=== PATIENT | male | born 1970 | race American Indian/Alaskan Native ===

== ENCOUNTER 2016-08-14 21:02 | Inpatient (IN) | payer MEDICAID ==
--- NOTE | 2016-08-14 21:19 | ED PDOC ---
Arrival/HPI - General Chief Complaint: Chest Pain Time Seen by Provider: 08/14/16 21:06 Historian: Patient - History of Present Illness Narrative History of Present Illness (Text): 08/14/16 21:16 León Raymundo is a 46 years old male, whose past medical history includes hypertension, CHF, and PR, who presents to the Emergency department complaining of chest pain. Patient states he began experiencing mid-sternal chest pain while walking today. Patient was given aspiring en route by EMS. Patient denies any fever, chills, shortness of breath, nausea, vomiting, diarrhea, urinary symptoms, back pain, neck pain, headache, dizziness, or any other complaints. Patient states he regularly takes Torsemide, Carvedilol, and Norvasc. Time/Duration: Other (today) Symptom Onset: Gradual Symptom Course: Unchanged Activities at Onset: Light Context: Walking, Home Past Medical History - Provider Review Nursing Documentation Reviewed: Yes - Cardiac Hx Congestive Heart Failure: Yes Hx PR: Yes Hx Hypertension: Yes - Psychiatric Hx Substance Use: No Family/Social History - Physician Review Nursing Documentation Reviewed: Yes Family/Social History: No Known Family HX Smoking Status: Current Some Days Smoker Hx Alcohol Use: Yes Hx Substance Use: No Allergies/Home Meds Allergies/Adverse Reactions: Allergies No Known Allergies Allergy (Unverified 08/14/16 21:20) Review of Systems - Physician Review All systems were reviewed & negative as marked: Yes - Review of Systems Constitutional: Normal. absent: Fevers Eyes: Normal ENT: Normal Respiratory: Normal. absent: SOB, Cough Cardiovascular: Chest Pain Gastrointestinal: Normal. absent: Abdominal Pain, Diarrhea, Nausea Genitourinary Male: Normal. absent: Dysuria, Frequency, Hematuria, Urinary Output Changes Musculoskeletal: Normal. absent: Back Pain, Neck Pain Skin: Normal. absent: Rash Neurological: Normal. absent: Headache, Dizziness Endocrine: Normal Hemo/Lymphatic: Normal Psychiatric: Normal Physical Exam Vital Signs Reviewed: Yes Vital Signs Temp Pulse Resp BP Pulse Ox 08/15/16 00:00 54 L 16 167/92 H 98 08/14/16 23:13 56 L 16 166/93 H 99 08/14/16 21:13 98.2 F 69 18 178/104 H 100 Temperature: Afebrile Blood Pressure: Hypertensive Pulse: Regular Respiratory Rate: Normal Appearance: Positive for: Well-Appearing, Non-Toxic, Comfortable Pain Distress: None Mental Status: Positive for: Alert and Oriented X 3 - Systems Exam Head: Present: Atraumatic, Normocephalic Pupils: Present: PERRL Extroacular Muscles: Present: EOMI Conjunctiva: Present: Normal Mouth: Present: Moist Mucous Membranes Neck: Present: Normal Range of Motion Respiratory/Chest: Present: Wheezes (Mild wheeze). No: Respiratory Distress, Accessory Muscle Use Cardiovascular: Present: Regular Rate and Rhythm, Normal S1, S2. No: Murmurs Abdomen: Present: Normal Bowel Sounds. No: Tenderness, Distention, Peritoneal Signs Back: Present: Normal Inspection Upper Extremity: Present: Normal Inspection. No: Cyanosis, Edema Lower Extremity: Present: Normal Inspection. No: Edema Neurological: Present: GCS=15, CN II-XII Intact, Speech Normal Skin: Present: Warm, Dry, Normal Color. No: Rashes Psychiatric: Present: Alert, Oriented x 3, Normal Insight, Normal Concentration Medical Decision Making ED Course and Treatment: 08/14/16 21:16 Impression: 46 year old male complaining of chest pain. Plan: -- EKG -- Chest X-ray -- Labs, cardiac enzymes, alcohol level -- Nitroglycerin -- Reassess and disposition Prior Visits: Notes and results from previous visits were reviewed. Progress Notes: Reviewed EKG, NSR at 68 bpm. Sinus arrhythmia. Non-specific ST/T wave changes. 08/15/16 00:12 Reviewed radiology, Chest X-ray shows no active disease. 08/15/16 00:[address] Olivarez, who is aware and agrees with plan. Pt will go to Telemetry observation for chest pain under the hospitalist service. president ceo & founder notified. - Lab Interpretations Lab Results: 08/14/16 21:25 08/14/16 21:25 Lab Results 08/14/16 21:25: PT 11.1, INR 1.03, APTT 25.9 08/14/16 21:25: WBC 6.2, RBC 4.36, Hgb 11.9 L, Hct 35.9 L, MCV 82.3, MCH 27.3, MCHC 33.1, RDW 15.2 H, Plt Count 354, MPV 9.5 08/14/16 21:25: Alcohol, Quantitative 427 H* 08/14/16 21:25: Sodium 147, Potassium 3.6, Chloride 106, Carbon Dioxide 29, Anion Gap 16, BUN 5 L, Creatinine 0.9, Est GFR ( Amer) > 60, Est GFR (Non -Af Amer) > 60, Random Glucose 102, Calcium 8.9, Total Bilirubin 0.8, AST 58, ALT 48, Alkaline Phosphatase 63, Lactate Dehydrogenase 477, Total Creatine Kinase 560 H, CK-MB (CK-2) 2.2, CK-MB (CK-2) % Cancelled, Troponin I < 0.01, Total Protein 7.6, Albumin 4.4, Globulin 3.3, Albumin/Globulin Ratio 1.3 I have reviewed the lab results: Yes - RAD Interpretation Radiology Orders: 08/14/16 21:21 CHEST PORTABLE [RAD] [employer] 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: ED Physician - EKG Interpretation Interpreted by ED Physician: Yes Type: 12 lead EKG - Medication Orders Current Medication Orders: Acetaminophen (Tylenol 325mg Tab) 650 mg PO Q6H PRN PRN Reason: Fever >100.4 F Famotidine (Pepcid) 20 mg PO BID SHAUNNA Lorazepam (Ativan) 4 mg PO Q3H PRN; Protocol PRN Reason: Etoh withdrawal Lorazepam (Ativan) 4 mg PO Q2H SHAUNNA PRN Reason: Protocol Thiamine HCl (Vitamin B1 Inj) 100 mg IM STAT STA Stop: 08/15/16 00:39 Thiamine HCl (Vitamin B1 Inj) 100 mg IV DAILY SHAUNNA Discontinued Medications Aspirin (Aspirin) 325 mg PO ONCE STA Stop: 08/14/16 22:11 Last Admin: 08/14/16 22:31 Dose: Nitroglycerin (Nitro-Bid 2% Oint) 1 ea TOP ONCE STA Stop: 08/14/16 22:11 Last Admin: 08/14/16 22:33 Dose: 1 ea - Scribe Statement The provider has reviewed the documentation as recorded by the Scribkeisha Gibson All medical record entries made by the Scribe were at my direction and personally dictated by me. I have reviewed the chart and agree that the record accurately reflects my personal performance of the history, physical exam, medical decision making, and the department course for this patient. I have also personally directed, reviewed, and agree with the discharge instructions and disposition. Disposition/Present on Arrival - Present on Arrival Any Indicators Present on Arrival: No History of DVT/PE: No History of Uncontrolled Diabetes: No Urinary Catheter: No History of Decub. Ulcer: No History Surgical Site Infection Following: None - Disposition Have Diagnosis and Disposition been Completed?: Yes Diagnosis: Chest pain, Alcohol intoxication Disposition: HOSPITALIZED Disposition Time: 00:39 Patient Plan: Observation Patient Problems: Current Active Problems Problem Status Onset Chest pain Acute Condition: STABLE Discharge Instructions (ExitCare): Chest Pain (ED) Referrals: Padmini Yanez MD [Primary Care Provider] - Follow up with primary
[2016-08-14 21:41] LABS: HEMATOCRIT 35.9 % (42.0-52.0); MEAN CELL VOLUME 82.3 fL (80.0-105.0); MEAN CORPUSCULAR HEMOGLOBIN 27.3 pg (25.0-35.0); MEAN CORPUSCULAR HGB CONC 33.1 g/dl (31.0-37.0); MEAN PLATELET VOLUME 9.5 fl (7.0-11.0); RED CELL DISTRIBUTION WIDTH 15.2 % (11.5-14.5); WHITE BLOOD COUNT 6.2 10^3/ul (4.5-11.0)
[2016-08-14 21:44] VITALS: BMI 27.3
[2016-08-14 21:53] LABS: ALB/GLOB RATIO 1.3 (1.1-1.8); ALKALINE PHOSPHATASE 63 U/L (38-133); ALT/SGPT 48 U/L (7-56); AST/SGOT 58 U/L (15-59); BILIRUBIN,TOTAL 0.8 mg/dL (0.2-1.3); BLOOD UREA NITROGEN 5 mg/dL (7-21); CALCIUM 8.9 mg/dL (8.4-10.5); CARBON DIOXIDE 29 mmol/L (21-33); CHLORIDE 106 mmol/L (98-107); GFR AFRICAN-AMERICAN > 60; GLUCOSE,RANDOM 102 mg/dL (70-110); INR 1.03 (0.93-1.08); PARTIAL THROMBOPLASTIN TIME 25.9 Seconds (23.7-30.8); POTASSIUM 3.6 mmol/L (3.6-5.0); SODIUM 147 mmol/L (132-148); TOTAL PROTEIN 7.6 g/dL (5.8-8.3)
[2016-08-14 22:04] LABS: TROPONIN I < 0.01 ng/mL
[2016-08-14] MEDS ORDERED: Nitroglycerin 2% Ointment Foilpak UD TOP STA (22:10)
[2016-08-15] MEDS ORDERED: Thiamine 100 mg/ml Inj IM STA (00:38)
--- NOTE | 2016-08-15 01:00 | CP.PCM.HP ---
<SujeyRodolfo terry - Last Filed: 08/15/16 02:16> History of Present Illness - History of Present Illness History of Present Illness: This patient is a 46yo M w/ a PMHx of EtOH abuse/dependence, CHF with unknown EF , who is presenting to the ED w/ a 1d history of chest pain, left sided, constant but now gone. The patient states that he was doing pushups earlier today, and started to feel chest pain. he threw up once nbnb. He states that he has had decreased exercise tolerance over the past few months, and sleeps with 2 pillows, and never wakes up gasping for breath in the middle of the night. He states he had a catheritization at the age of 19, but has no stents. he smokes 2 cigarettes per day. denies other drugs. patient states that he drinks 2-3 pints of vodka every day for the past 20 years. He admits to extreme withdrawals in the past, where he hallucinates and gets violent during other hospitalizations. 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 His EtOH level was 427. Present on Admission - Present on Admission Any Indicators Present on Admission: No History of DVT/PE: No History of Uncontrolled Diabetes: No Urinary Catheter: No Decubitus Ulcer Present: No Past Patient History - Past Social History Smoking Status: Current Some Days Smoker - CARDIAC Hx Congestive Heart Failure: Yes Hx Heart Attack: Yes Hx Hypertension: Yes - PSYCHIATRIC Hx Substance Use: No Meds Allergies/Adverse Reactions: Allergies Allergy/AdvReac Type Severity Reaction Status Date / Time No Known Allergies Allergy Unverified 08/14/16 21:20 Physical Exam - Constitutional Appears: Non-toxic Additional comments: smells of alcohol - Head Exam Head Exam: ATRAUMATIC - Eye Exam Eye Exam: EOMI Pupil Exam: PERRL - ENT Exam ENT Exam: Mucous Membranes Moist - Neck Exam Neck exam: Positive for: Full Rom. Negative for: Lymphadenopathy - Respiratory Exam Respiratory Exam: Clear to Auscultation Bilateral, NORMAL BREATHING PATTERN. absent: Rales, Rhonchi, Wheezes - Cardiovascular Exam Cardiovascular Exam: REGULAR RHYTHM - GI/Abdominal Exam GI & Abdominal Exam: Normal Bowel Sounds, Soft. absent: Tenderness - Rectal Exam Rectal Exam: Deferred - Extremities Exam Extremities exam: Negative for: calf tenderness - Back Exam Back exam: NORMAL INSPECTION. absent: CVA tenderness (L), CVA tenderness (R) - Neurological Exam Neurological exam: Alert, CN II-XII Intact, Oriented x3 - Psychiatric Exam Psychiatric exam: Normal Affect - Skin Skin Exam: Warm Results - Vital Signs Recent Vital Signs: Last Vital Signs Temp 98.2 F 08/14/16 21:13 Pulse 54 L 08/15/16 00:00 Resp 16 08/15/16 00:00 BP 167/92 H 08/15/16 00:00 Pulse Ox 98 08/15/16 00:00 - Labs Result Diagrams: 08/14/16 21:25 08/14/16 21:25 Labs: Laboratory Results - last 24 hr 08/14/16 08/14/16 08/14/16 21:25 21:25 21:25 WBC 6.2 RBC 4.36 Hgb 11.9 L Hct 35.9 L MCV 82.3 MCH 27.3 MCHC 33.1 RDW 15.2 H Plt Count 354 MPV 9.5 PT INR APTT Sodium 147 Potassium 3.6 Chloride 106 Carbon Dioxide 29 Anion Gap 16 BUN 5 L Creatinine 0.9 Est GFR ( Amer) > 60 Est GFR (Non-Af Amer) > 60 Random Glucose 102 Calcium 8.9 Total Bilirubin 0.8 AST 58 ALT 48 Alkaline Phosphatase 63 Lactate Dehydrogenase 477 Total Creatine Kinase 560 H CK-MB (CK-2) 2.2 CK-MB (CK-2) % Cancelled Troponin I < 0.01 Total Protein 7.6 Albumin 4.4 Globulin 3.3 Albumin/Globulin Ratio 1.3 Alcohol, Quantitative 427 H* 08/14/16 21:25 WBC RBC Hgb Hct MCV MCH MCHC RDW Plt Count MPV PT 11.1 INR 1.03 APTT 25.9 Sodium Potassium Chloride Carbon Dioxide Anion Gap BUN Creatinine Est GFR ( Amer) Est GFR (Non-Af Amer) Random Glucose Calcium Total Bilirubin AST ALT Alkaline Phosphatase Lactate Dehydrogenase Total Creatine Kinase CK-MB (CK-2) CK-MB (CK-2) % Troponin I Total Protein Albumin Globulin Albumin/Globulin Ratio Alcohol, Quantitative Assessment & Plan - Assessment and Plan (Free Text) Assessment: 46yo M admitted for Chest Pain Chest Pain -initial troponin negative; trend -telemetry -given aspirin in EMS and nitro whith relieved pain -supplemental O2 if becomes hypoxic CHF; chronic but unknown EF or whether systolic/diastolic -f/u echo -c/w reported meds at lower dose; likely need to titrate -add aspirin EtOH abuse/dependece and inevitable withdrawal -CIWA protocol -Ativan 4mg PO Q3H SHAUNNA Ativan 4mg Q2H PRN -Thiamine, Folate, Multivitamin daily HTN -c/w with home meds; lower dose; will likely need to titrate Prophylaxis -Pepcid -SCD -Heart Healthy Diet Case discussed with Dr. Juanis Arnett PGY1 Night Float Decision To Admit - Pt Status Changed To: Hospital Disposition Of: Inpatient Admission - Admit Certification Admit to Inpatient:: After my assessment, the patient will require hospitalization for at least two midnights. This is because of the severity of symptoms shown, intensity of services needed, and/or the medical risk in this patient being treated as an outpatient. - . Bed Request Type: Remote Telemetry Admitting Physician: Fausto Olivarez <Fausto Olivarez - Last Filed: 08/15/16 02:40> Results - Vital Signs Recent Vital Signs: Last Vital Signs Temp 98.2 F 08/14/16 21:13 Pulse 57 L 08/15/16 02:25 Resp 17 08/15/16 02:25 BP 164/90 H 08/15/16 02:25 Pulse Ox 97 08/15/16 02:25 - Labs Result Diagrams: 08/14/16 21:25 08/14/16 21:25 Labs: Laboratory Results - last 24 hr 08/15/16 08/15/16 08/15/16 01:17 01:17 01:55 Phosphorus 4.2 Magnesium 1.8 NT-Pro-B Natriuret Pep 208 Triglycerides 66 Cholesterol 352 H LDL Cholesterol Direct 151 H HDL Cholesterol 166 H Urine Color Liz Urine Appearance Clear Urine pH 6.5 Ur Specific [place] 1.010 Urine Protein 30 H Urine Glucose (UA) Negative Urine Ketones Negative Urine Blood Trace-lysed H Urine Nitrate Negative Urine Bilirubin Negative Urine Urobilinogen 1.0 H Ur Leukocyte Esterase Negative Urine RBC 15 - 20 Urine WBC 2 - 5 Ur Epithelial Cells 6 - 8 Urine Opiates Screen Negative Urine Methadone Screen Negative Ur Barbiturates Screen Negative Ur Phencyclidine Scrn Negative Ur Amphetamines Screen Negative U Benzodiazepines Scrn Negative U Oth Cocaine Metabols Negative U Cannabinoids Screen Negative Attending/Attestation - Attestation I have personally seen and examined this patient.: Yes I have fully participated in the care of the patient.: Yes I have reviewed all pertinent clinical information: Yes Notes (Text): 08/15/16 02:37 I agree with the above mentioned note and exam by Dr. Beatty with the addition/ exception of the followin46 y/o male with a PMHx Etoh dependance, ?CHF presents with the complaints of chest pain for one day. Patient also provides a history of cardiac issues since his teenage years stating he has a history of mitral valve prolapse, however does not have profound cardiomegaly on his cxr. Will place on observation for CP r/o ACS and evaluate for possible CHF as he does not appear to be a reliable historian. May have a lot to do with the fact that he is currently inebriated with an alcohol level of over 400.
[2016-08-15 01:33] LABS: PH,URINE 6.5 (4.7-8.0); URINE BILIRUBIN NEGATIVE (NEGATIVE); URINE BLOOD TRACE-LYSED (NEGATIVE); URINE GLUCOSE (UA) NEGATIVE (NEGATIVE); URINE KETONE NEGATIVE (NEGATIVE); URINE LEUKOCYTE ESTERASE NEGATIVE Leu/uL (NEGATIVE); URINE PROTEIN 30 mg/dL (<30 mg/dL)
[2016-08-15 01:34] LABS: URINE APPEARANCE CLEAR (CLEAR); URINE COLOR AMBER (YELLOW)
[2016-08-15 01:57] LABS: URINE RBC 15 - 20 /hpf (0-2)
[2016-08-15 02:15] LABS: MAGNESIUM 1.8 mg/dL (1.7-2.2); PHOSPHOROUS 4.2 mg/dL (2.5-4.5)
[2016-08-15 02:44] LABS: FREE T4 1.3 ng/dL (0.78-2.19)
[2016-08-15 02:48] LABS: IRON 75 ug/dL (45-180)
[2016-08-15 02:58] LABS: THYROID STIMULATING HORMONE 1.22 mIU/mL (0.46-4.68)
[2016-08-15 07:14] LABS: ALB/GLOB RATIO 1.3 (1.1-1.8); ALKALINE PHOSPHATASE 58 U/L (38-133); ALT/SGPT 46 U/L (7-56); AST/SGOT 48 U/L (15-59); BILIRUBIN,TOTAL 0.8 mg/dL (0.2-1.3); BLOOD UREA NITROGEN 6 mg/dL (7-21); CALCIUM 8.7 mg/dL (8.4-10.5); CARBON DIOXIDE 27 mmol/L (21-33); CHLORIDE 105 mmol/L (98-107); GFR AFRICAN-AMERICAN > 60; GLUCOSE,RANDOM 86 mg/dL (70-110); MAGNESIUM 1.7 mg/dL (1.7-2.2); PHOSPHOROUS 3.7 mg/dL (2.5-4.5); POTASSIUM 3.5 mmol/L (3.6-5.0); SODIUM 145 mmol/L (132-148); TOTAL PROTEIN 7.1 g/dL (5.8-8.3)
[2016-08-15 07:30] LABS: TROPONIN I < 0.01 ng/mL
--- NOTE | 2016-08-15 10:13 | RAD ---
HISTORY: Chest pain. Portable study 23:25. COMPARISON: No prior. FINDINGS: LUNGS: No active pulmonary disease. PLEURA: No significant pleural effusion identified, no pneumothorax apparent. CARDIOVASCULAR: No radiographic findings to suggest acute or significant cardiovascular disease. OSSEOUS STRUCTURES: No significant abnormalities. VISUALIZED UPPER ABDOMEN: Normal. OTHER FINDINGS: None. IMPRESSION: No active disease.
--- NOTE | 2016-08-15 10:32 | CARD ---
APPROVED REPORT EKG Measurement Heart [id number] <Conclusion> Normal sinus rhythm with sinus arrhythmia Minimal voltage criteria for LVH, may be normal variant ST & T wave abnormality c/w ischemia Prolonged QT
[2016-08-15] MEDS: Thiamine 100 mg/ml Inj IV SCH (11:13)
[2016-08-15] MEDS: Multivitamin With Minerals Tab PO SCH (11:14)
[2016-08-15 14:07] LABS: FOLATE 8.4 ng/mL
[2016-08-15] MEDS ORDERED: Potassium Chloride 20 mEq ER Tab PO ONE (14:33)
--- NOTE | 2016-08-16 07:22 | CP.PCM.PN ---
<Zuhair Murcia - Last Filed: 08/16/16 10:53> Subjective - Date & Time of Evaluation Date of Evaluation: 08/16/16 Time of Evaluation: 07:40 - Subjective Subjective: Pt was seen and examined at bedside. No acute complaints at this time. As per Nursing staff, pt htn overnight without symptoms. Medications adjusted this morning. Pt is tolerating diet and moving his bladder regularly and passing flatus. Pt denied fever, chills, chest pains, sob, abdominal pains, n/v/d/c or any urinary symptoms. Objective - Vital Signs/Intake and Output Vital Signs (last 24 hours): Temp Pulse Resp BP Pulse Ox 97.9 F 84 18 170/105 H 97 08/16/16 06:00 08/16/16 06:00 08/16/16 06:00 08/16/16 06:03 08/16/16 06:00 Intake and Output: 08/16/16 08/16/16 06:59 18:59 Intake Total 1240 Output Total 320 Balance 920 - Medications Medications: Current Medications Acetaminophen (Tylenol 325mg Tab) 650 mg PO Q6H PRN PRN Reason: Fever >100.4 F Amlodipine Besylate (Norvasc) 5 mg PO DAILY [facility] Aspirin (Ecotrin) 81 mg PO DAILY [facility] Last Admin: 08/15/16 11:14 Dose: 81 mg Carvedilol (Coreg) 3.125 mg PO DAILY [facility] Last Admin: 08/15/16 11:13 Dose: 3.125 mg Chlordiazepoxide (Librium) 25 mg PO Q8 SHAUNNA PRN Reason: Protocol Last Admin: 08/16/16 05:45 Dose: 25 mg Famotidine (Pepcid) 20 mg PO BID [facility] Last Admin: 08/15/16 18:09 Dose: 20 mg Lorazepam (Ativan) 4 mg PO Q3H PRN; Protocol PRN Reason: Etoh withdrawal Last Admin: 08/15/16 23:40 Dose: 4 mg Multivitamins/Minerals (Therapeutic-M Tab) 1 tab PO DAILY [facility] Last Admin: 08/15/16 11:14 Dose: 1 tab Thiamine HCl (Vitamin B1 Inj) 100 mg IV DAILY [facility] Last Admin: 08/15/16 11:13 Dose: 100 mg Torsemide (Demadex) 5 mg PO DAILY [facility] Last Admin: 08/15/16 12:14 Dose: Not Given Torsemide (Demadex) 5 mg PO DAILY SHAUNNA - Labs Labs: 08/15/16 06:53 PT 11.1 Seconds (9.9-11.8) 08/14/16 21:25 INR 1.03 (0.93-1.08) 08/14/16 21:25 APTT 25.9 Seconds (23.7-30.8) 08/14/16 21:25 - Constitutional Appears: Well, No Acute Distress - Head Exam Head Exam: ATRAUMATIC, NORMAL INSPECTION, NORMOCEPHALIC - Eye Exam Eye Exam: EOMI, Normal appearance, PERRL - ENT Exam ENT Exam: Mucous Membranes Moist, Normal Exam - Neck Exam Neck Exam: Full ROM, Normal Inspection. absent: Lymphadenopathy - Respiratory Exam Respiratory Exam: Clear to Ausculation Bilateral, NORMAL BREATHING PATTERN - Cardiovascular Exam Cardiovascular Exam: REGULAR RHYTHM, +S1, +S2. absent: Murmur - GI/Abdominal Exam GI & Abdominal Exam: Soft, Normal Bowel Sounds. absent: Tenderness - Extremities Exam Extremities Exam: Full ROM, Normal Capillary Refill, Normal Inspection. absent : Joint Swelling, Pedal Edema - Neurological Exam Neurological Exam: Alert, Awake, CN II-XII Intact, Normal Gait, Oriented x3 - Psychiatric Exam Psychiatric exam: Normal Affect, Normal Mood - Skin Skin Exam: Dry, Intact, Normal Color, Warm Assessment and Plan - Assessment and Plan (Free Text) Assessment: 46 M with PMHx of Etoh dependance, ?MVP, ?CHF presenting with the complaints of chest pain for one day. R/o ACS and evaluate for possible CHF. Chest Pain - Resolved -trops negative x 3 - No ST changes on EKG HTN - metoprolol 25BID - Norvasc 10mg - Continue to monitor CHF - echo demonstrated EF of 35% - BNP wnl - No acute exacerbation currently EtOH abuse/dependece -CIWA protocol -Taper librium 25mg -> 10mg q8 -Thiamine, Folate, Multivitamin daily Prophylaxis -Pepcid -SCD -Heart Healthy Diet Seen reviewed and discussed with attending <Samy Tong - Last Filed: 08/16/16 16:42> Objective - Vital Signs/Intake and Output Vital Signs (last 24 hours): Temp Pulse Resp BP Pulse Ox 99 F 80 20 178/120 H 97 08/16/16 12:00 08/16/16 14:00 08/16/16 12:00 08/16/16 12:00 08/16/16 06:00 - Medications Medications: Current Medications Acetaminophen (Tylenol 325mg Tab) 650 mg PO Q6H PRN PRN Reason: Fever >100.4 F Amlodipine Besylate (Norvasc) 10 mg PO DAILY [facility] Last Admin: 08/16/16 10:28 Dose: 10 mg Aspirin (Ecotrin) 81 mg PO DAILY [facility] Last Admin: 08/16/16 10:28 Dose: 81 mg Atorvastatin Calcium (Lipitor) 20 mg PO DIN [facility] Chlordiazepoxide (Librium) 10 mg PO Q8 SHAUNNA PRN Reason: Protocol Last Admin: 08/16/16 14:44 Dose: 10 mg Famotidine (Pepcid) 20 mg PO BID [facility] Last Admin: 08/16/16 10:28 Dose: 20 mg Folic Acid (Folic Acid) 1 mg PO DAILY [facility] Lorazepam (Ativan) 4 mg PO Q3H PRN; Protocol PRN Reason: Etoh withdrawal Last Admin: 08/15/16 23:40 Dose: 4 mg Magnesium Oxide (Mag-Ox) 400 mg PO ONCE ONE Stop: 08/16/16 18:01 Metoprolol Tartrate (Lopressor) 25 mg PO BRKDIN [facility] Last Admin: 08/16/16 08:53 Dose: 25 mg Multivitamins/Minerals (Therapeutic-M Tab) 1 tab PO DAILY [facility] Last Admin: 08/16/16 10:28 Dose: 1 tab Thiamine HCl (Vitamin B1 Tab) 100 mg PO DAILY [facility] Torsemide (Demadex) 5 mg PO DAILY [facility] Last Admin: 08/16/16 10:28 Dose: Not Given Torsemide (Demadex) 5 mg PO DAILY [facility] Last Admin: 08/16/16 10:27 Dose: 5 mg - Labs Labs: PT 11.1 Seconds (9.9-11.8) 08/14/16 21:25 INR 1.03 (0.93-1.08) 08/14/16 21:25 APTT 25.9 Seconds (23.7-30.8) 08/14/16 21:25 Attending/Attestation - Attestation I have personally seen and examined this patient.: Yes I have fully participated in the care of the patient.: Yes I have reviewed all pertinent clinical information, including history, physical exam and plan: Yes Notes (Text): I have seen and examined patient at bedside. Agree with the note dictated by the resident with the following additions/ exceptions: Briefly this is 46 year old male with history of alcohol abuse, CHF due to systolic dysfunction (EF30-35 %), HTN, trace MR, trace TR who was admitted for evaluation of short episode of chest pain which got resolved upon admission. Serial troponin negative. EKG showed non specific ST T wave changes. Patient is going thru active alcohol withdrawal. He is somnolent, anxious, tremulous, dizzy and admits to visual / auditory hallucinations. He states that he felt better after taking librium. Will continue librium and start po thiamine, folic acid and MVI. His BP was noted to be high. Will restart his home meds. Will provide counslling for alcohol abuse once he is more awake. PT eval pending. He needs outpatient stress test. Upon discharge patient will follow up with Dr Yanez. Dr Samy Tong
[2016-08-16 07:28] LABS: ADD MANUAL DIFF? NO
[2016-08-16 07:31] LABS: BASO # 0.06 K/mm3 (0.0-2.0); BASO % 0.9 % (0.0-3.0); EOS # 0.2 (0.0-0.7); EOS % 2.6 % (1.5-5.0); GRAN # 3.94 (1.4-6.5); GRAN % 60.6 % (50.0-68.0); HEMATOCRIT 37.2 % (42.0-52.0); LYMPH # 1.8 (1.2-3.4); LYMPH % 27.4 % (22.0-35.0); MEAN CELL VOLUME 81.9 fL (80.0-105.0); MEAN CORPUSCULAR HGB CONC 34.1 g/dl (31.0-37.0); MEAN PLATELET VOLUME 10.1 fl (7.0-11.0); MONO # 0.6 (0.1-0.6); MONO % 8.5 % (1.0-6.0); PLATELET COUNT 315 10^3/uL (120.0-450.0); RED CELL DISTRIBUTION WIDTH 15.2 % (11.5-14.5); WHITE BLOOD COUNT 6.5 10^3/ul (4.5-11.0)
[2016-08-16 08:49] LABS: ALB/GLOB RATIO 1.3 (1.1-1.8); ALKALINE PHOSPHATASE 71 U/L (38-133); ALT/SGPT 42 U/L (7-56); AST/SGOT 41 U/L (15-59); BILIRUBIN,TOTAL 1.7 mg/dL (0.2-1.3); BLOOD UREA NITROGEN 11 mg/dL (7-21); CALCIUM 9.7 mg/dL (8.4-10.5); CARBON DIOXIDE 26 mmol/L (21-33); CHLORIDE 99 mmol/L (98-107); GFR AFRICAN-AMERICAN > 60; GLUCOSE,RANDOM 76 mg/dL (70-110); MAGNESIUM 1.5 mg/dL (1.7-2.2); PHOSPHOROUS 3.6 mg/dL (2.5-4.5); POTASSIUM 3.2 mmol/L (3.6-5.0); SODIUM 138 mmol/L (132-148); TOTAL PROTEIN 7.8 g/dL (5.8-8.3)
--- NOTE | 2016-08-16 09:07 | CARD ---
APPROVED REPORT EXAM: Two-dimensional and M-mode echocardiogram with Doppler and color Doppler. Other Information Quality : AverageRhythm : INDICATION CHF 2D DIMENSIONS IVSd1.1 (0.7-1.1cm)LVDd5.6 (3.9-5.9cm) PWd1.1 (0.7-1.1cm)LVDs4.6 (2.5-4.0cm) FS (%) 16.9 %LVEF (%)35.0 (>50%) M-Mode DIMENSIONS Left Atrium (MM)3.70 (2.5-4.0cm)Aortic Root3.30 (2.2-3.7cm) Aortic Cusp Exc.1.80 (1.5-2.0cm) Aortic Valve AoV Peak Cbvqqkbk854.0cm/s Mitral Valve MV E Boilzwje24.3cm/sE/A ratio0.0 TDI Lateral E' Peak V8.19cm/sMedial E' Peak V10.20cm/sE/Lateral E'11.6 E/Medial E'9.3 Tricuspid Valve TR Peak [id number]/sRAP [id number] Peak Gr.19mmHg [id number] LEFT VENTRICLE The left ventricle is normal size. There is normal left ventricular wall thickness. Left ventricle systolic function is moderately to severely impaired. The Ejection Fraction is 30-35%. There is moderate to severe global hypokinesis. RIGHT VENTRICLE The right ventricle is normal size. ATRIA The left atrium size is normal. The right atrium size is normal. The atrial septum is aneurysmal. No shunt detected.. AORTIC VALVE The aortic valve is normal in structure. MITRAL VALVE The mitral valve is normal in structure. Mitral regurgitation is trace. TRICUSPID VALVE The tricuspid valve is normal in structure. There is trace tricuspid regurgitation. PULMONIC VALVE The pulmonary valve is normal in structure. GREAT VESSELS The aortic root is normal in size. PERICARDIAL EFFUSION There is no pericardial effusion. <Conclusion> The left ventricle is normal size. There is normal left ventricular wall thickness. Left ventricle systolic function is moderately to severely impaired. The Ejection Fraction is 30-35%. There is moderate to severe global hypokinesis. The atrial septum is aneurysmal. No shunt detected.. Mitral regurgitation is trace. There is trace tricuspid regurgitation.
[2016-08-16] MEDS: Thiamine 100 mg/ml Inj IV SCH (10:27)
[2016-08-16] MEDS: Multivitamin With Minerals Tab PO SCH (10:28)
[2016-08-16] MEDS ORDERED: Potassium Chloride 20 mEq ER Tab PO STA (10:32)
[2016-08-16] MEDS ORDERED: Magnesium Oxide 400 mg Tab UD PO ONE (18:00)
[2016-08-17] MEDS: Multivitamin With Minerals Tab PO SCH (09:20)
--- NOTE | 2016-08-17 09:40 | CP.PCM.PN ---
<Zuhair Murcia - Last Filed: 08/18/16 14:41> Subjective - Date & Time of Evaluation Date of Evaluation: 08/17/16 Time of Evaluation: 09:20 - Subjective Subjective: Pt was seen and examined at bedside. Pt refused AM labs. Pt now agreeable to have labs drawn. Pt has no new complaints at this time. He states he was feeling nauseous and dizzy last night however feels better today. He had a normally formed bm yesterday. He is tolerating diet and is ambulating. As per nurse, pt has a CIWA of 4. Pt denied fever, chills, sob, chest pains, abdominal pains, n/v/d/c or urinary symptoms. Objective - Vital Signs/Intake and Output Vital Signs (last 24 hours): Temp Pulse Resp BP Pulse Ox 97.7 F 69 18 133/96 H 96 08/17/16 09:33 08/17/16 09:33 08/17/16 09:33 08/17/16 09:33 08/17/16 09:33 Intake and Output: 08/17/16 08/17/16 06:59 18:59 Intake Total 420 Balance 420 - Medications Medications: Current Medications Acetaminophen (Tylenol 325mg Tab) 650 mg PO Q6H PRN PRN Reason: Fever >100.4 F Amlodipine Besylate (Norvasc) 10 mg PO DAILY [facility] Last Admin: 08/17/16 09:21 Dose: 10 mg Aspirin (Ecotrin) 81 mg PO DAILY [facility] Last Admin: 08/17/16 09:20 Dose: 81 mg Atorvastatin Calcium (Lipitor) 20 mg PO DIN [facility] Last Admin: 08/16/16 17:01 Dose: 20 mg Carvedilol (Coreg) 6.25 mg PO BID [facility] Last Admin: 08/17/16 09:20 Dose: 6.25 mg Chlordiazepoxide (Librium) 5 mg PO Q8 [facility] PRN Reason: Protocol Famotidine (Pepcid) 20 mg PO BID [facility] Last Admin: 08/17/16 09:20 Dose: 20 mg Folic Acid (Folic Acid) 1 mg PO DAILY [facility] Last Admin: 08/17/16 09:20 Dose: 1 mg Lorazepam (Ativan) 4 mg PO Q3H PRN; Protocol PRN Reason: Etoh withdrawal Last Admin: 06/10/17 23:40 Dose: 4 mg Multivitamins/Minerals (Therapeutic-M Tab) 1 tab PO DAILY [facility] Last Admin: 08/17/16 09:20 Dose: 1 tab Thiamine HCl (Vitamin B1 Tab) 100 mg PO DAILY [facility] Last Admin: 08/17/16 09:20 Dose: 100 mg Torsemide (Demadex) 5 mg PO DAILY [facility] Last Admin: 08/17/16 09:30 Dose: 5 mg - Labs Labs: PT 11.1 Seconds (9.9-11.8) 08/14/16 21:25 INR 1.03 (0.93-1.08) 08/14/16 21:25 APTT 25.9 Seconds (23.7-30.8) 08/14/16 21:25 - Constitutional Appears: No Acute Distress - Head Exam Head Exam: ATRAUMATIC, NORMAL INSPECTION, NORMOCEPHALIC - Eye Exam Eye Exam: EOMI, Normal appearance, PERRL Pupil Exam: NORMAL ACCOMODATION, PERRL - ENT Exam ENT Exam: Mucous Membranes Moist, Normal Exam - Neck Exam Neck Exam: Full ROM, Normal Inspection. absent: Lymphadenopathy - Respiratory Exam Respiratory Exam: Clear to Ausculation Bilateral, NORMAL BREATHING PATTERN - Cardiovascular Exam Cardiovascular Exam: REGULAR RHYTHM, +S1, +S2. absent: Murmur - GI/Abdominal Exam GI & Abdominal Exam: Soft, Normal Bowel Sounds. absent: Tenderness - Extremities Exam Extremities Exam: Full ROM, Normal Capillary Refill, Normal Inspection. absent : Joint Swelling, Pedal Edema - Back Exam Back Exam: NORMAL INSPECTION - Neurological Exam Neurological Exam: Alert, Awake, CN II-XII Intact, Normal Gait, Oriented x3 - Psychiatric Exam Psychiatric exam: Normal Affect, Normal Mood - Skin Skin Exam: Dry, Intact, Normal Color, Warm Assessment and Plan - Assessment and Plan (Free Text) Assessment: 46 M with PMHx of Etoh dependance, ?MVP, ?CHF presenting with the complaints of chest pain for one day. R/o ACS and evaluate for possible CHF. Chest Pain - Resolved -trops negative x 3 - No ST changes on EKG HTN - metoprolol 25BID - Norvasc 10mg - Continue to monitor CHF - echo demonstrated EF of 35% - BNP wnl - No acute exacerbation currently EtOH abuse/dependece -[facility] protocol -Taper librium 25mg -> 10mg q8 -Thiamine, Folate, Multivitamin daily Prophylaxis -Pepcid -SCD -Heart Healthy Diet Seen reviewed and discussed with attending Pt for dc today, as per PT - able to ambulate safely <Samy Tong - Last Filed: 09/08/16 14:24> Objective - Vital Signs/Intake and Output Vital Signs (last 24 hours): Temp Pulse Resp BP Pulse Ox 97.7 F 80 18 133/96 H 96 08/17/16 09:33 08/17/16 10:00 08/17/16 09:33 08/17/16 09:33 08/17/16 09:33 - Labs Labs: 08/17/16 09:45 08/17/16 05:00 PT 11.1 Seconds (9.9-11.8) 08/14/16 21:25 INR 1.03 (0.93-1.08) 08/14/16 21:25 APTT 25.9 Seconds (23.7-30.8) 08/14/16 21:25 Attending/Attestation - Attestation I have personally seen and examined this patient.: Yes I have fully participated in the care of the patient.: Yes I have reviewed all pertinent clinical information, including history, physical exam and plan: Yes
[2016-08-17 10:24] LABS: ADD MANUAL DIFF? NO
[2016-08-17 10:29] LABS: BASO # 0.02 K/mm3 (0.0-2.0); BASO % 0.2 % (0.0-3.0); EOS # 0.3 (0.0-0.7); EOS % 3.7 % (1.5-5.0); GRAN # 5.93 (1.4-6.5); GRAN % 67.3 % (50.0-68.0); HEMATOCRIT 36.3 % (42.0-52.0); LYMPH % 22.9 % (22.0-35.0); MEAN CELL VOLUME 82.5 fL (80.0-105.0); MEAN CORPUSCULAR HEMOGLOBIN 27.7 pg (25.0-35.0); MEAN CORPUSCULAR HGB CONC 33.6 g/dl (31.0-37.0); MEAN PLATELET VOLUME 9.7 fl (7.0-11.0); MONO # 0.5 (0.1-0.6); MONO % 5.9 % (1.0-6.0); PLATELET COUNT 271 10^3/uL (120.0-450.0); WHITE BLOOD COUNT 8.8 10^3/ul (4.5-11.0)
[2016-08-17 10:45] LABS: ALB/GLOB RATIO 1.3 (1.1-1.8); ALKALINE PHOSPHATASE 57 U/L (38-133); ALT/SGPT 37 U/L (7-56); AST/SGOT 34 U/L (15-59); BILIRUBIN,TOTAL 1.3 mg/dL (0.2-1.3); BLOOD UREA NITROGEN 11 mg/dL (7-21); CALCIUM 10.2 mg/dL (8.4-10.5); CARBON DIOXIDE 26 mmol/L (21-33); CHLORIDE 97 mmol/L (98-107); GFR AFRICAN-AMERICAN > 60; GLUCOSE,RANDOM 108 mg/dL (70-110); MAGNESIUM 1.5 mg/dL (1.7-2.2); PHOSPHOROUS 3.8 mg/dL (2.5-4.5); POTASSIUM 3.6 mmol/L (3.6-5.0); SODIUM 133 mmol/L (132-148); TOTAL PROTEIN 7.6 g/dL (5.8-8.3)
[2016-08-17 13:52] VITALS: BP 133/96; PULSE 80; RESP 18; TEMP 97.7; O2SAT 96
--- NOTE | 2016-08-17 14:31 | CP.PCM.DIS ---
<TwinZuhair - Last Filed: 08/18/16 14:43> Provider - Provider Date of Admission: 08/16/16 10:53 Attending physician: Samy Tong MD Primary care physician: Padmini Yanez MD Time Spent in preparation of Discharge (in minutes): 45 Hospital Course - Lab Results Lab Results: Most Recent Lab Values WBC 8.8 10^3/ul (4.5-11.0) D 08/17/16 09:45 RBC 4.40 10^6/uL (3.5-6.1) 08/17/16 09:45 Hgb 12.2 gm/dL (14.0-18.0) L 08/17/16 09:45 Hct 36.3 % (42.0-52.0) L 08/17/16 09:45 MCV 82.5 fL (80.0-105.0) 08/17/16 09:45 MCH 27.7 pg (25.0-35.0) 08/17/16 09:45 MCHC 33.6 g/dl (31.0-37.0) 08/17/16 09:45 RDW 15.0 % (11.5-14.5) H 08/17/16 09:45 Plt Count 271 10^3/uL (120.0-450.0) 08/17/16 09:45 MPV 9.7 fl (7.0-11.0) 08/17/16 09:45 Gran % 67.3 % (50.0-68.0) 08/17/16 09:45 Lymph % (Auto) 22.9 % (22.0-35.0) 08/17/16 09:45 [place] % (Auto) 5.9 % (1.0-6.0) 08/17/16 09:45 Eos % (Auto) 3.7 % (1.5-5.0) 08/17/16 09:45 Baso % (Auto) 0.2 % (0.0-3.0) 08/17/16 09:45 Gran # 5.93 (1.4-6.5) 08/17/16 09:45 Lymph # 2.0 (1.2-3.4) 08/17/16 09:45 [place] # 0.5 (0.1-0.6) 08/17/16 09:45 Eos # 0.3 (0.0-0.7) 08/17/16 09:45 Baso # 0.02 K/mm3 (0.0-2.0) 08/17/16 09:45 PT 11.1 Seconds (9.9-11.8) 08/14/16 21:25 INR 1.03 (0.93-1.08) 08/14/16 21:25 APTT 25.9 Seconds (23.7-30.8) 08/14/16 21:25 Sodium 133 mmol/L (132-148) 08/17/16 05:00 Potassium 3.6 mmol/L (3.6-5.0) 08/17/16 05:00 Chloride 97 mmol/L (98-107) L 08/17/16 05:00 Carbon Dioxide 26 mmol/L (21-33) 08/17/16 05:00 Anion Gap 14 (10-20) 08/17/16 05:00 BUN 11 mg/dL (7-21) 08/17/16 05:00 Creatinine 1.0 mg/dL (0.5-1.4) 08/17/16 05:00 Est GFR ( Amer) > 60 08/17/16 05:00 Est GFR (Non-Af Amer) > 60 08/17/16 05:00 Random Glucose 108 mg/dL (70-110) 08/17/16 05:00 Hemoglobin A1c 5.1 % (4.2-6.5) 08/15/16 01:55 Calcium 10.2 mg/dL (8.4-10.5) 08/17/16 05:00 Phosphorus 3.8 mg/dL (2.5-4.5) 08/17/16 05:00 Magnesium 1.5 mg/dL (1.7-2.2) L 08/17/16 05:00 Iron 75 ug/dL (45-180) 08/15/16 01:55 TIBC 280 ug/dL (261-462) 08/15/16 01:55 % Saturation 27 % (20-55) 08/15/16 01:55 Ferritin 66.1 ng/mL 08/15/16 01:55 Total Bilirubin 1.3 mg/dL (0.2-1.3) 08/17/16 05:00 AST 34 U/L (15-59) 08/17/16 05:00 ALT 37 U/L (7-56) 08/17/16 05:00 Alkaline Phosphatase 57 U/L (38-133) 08/17/16 05:00 Lactate Dehydrogenase 477 U/L (333-699) 08/14/16 21:25 Total Creatine Kinase 560 U/L (35-230) H 08/14/16 21:25 CK-MB (CK-2) 2.2 ng/mL (0.0-3.6) 08/14/16 21:25 CK-MB (CK-2) % Cancelled 08/14/16 21:25 Troponin I < 0.01 ng/mL 08/15/16 11:30 NT-Pro-B Natriuret Pep 208 pg/mL (0-450) 08/15/16 01:55 Total Protein 7.6 g/dL (5.8-8.3) 08/17/16 05:00 Albumin 4.3 g/dL (3.0-4.8) 08/17/16 05:00 Globulin 3.3 gm/dL 08/17/16 05:00 Albumin/Globulin Ratio 1.3 (1.1-1.8) 08/17/16 05:00 Triglycerides 66 mg/dL (35-160) 08/15/16 01:55 Cholesterol 352 mg/dL (130-200) H 08/15/16 01:55 LDL Cholesterol Direct 151 mg/dL (0-129) H 08/15/16 01:55 HDL Cholesterol 166 mg/dL (29-60) H 08/15/16 01:55 Vitamin B12 634 pg/mL (239-931) 08/15/16 01:55 Folate 8.4 ng/mL 08/15/16 01:55 Free T4 1.30 ng/dL (0.78-2.19) 08/15/16 01:55 TSH 3rd Generation 1.22 mIU/mL (0.46-4.68) 08/15/16 01:55 Urine Color Liz (YELLOW) 08/15/16 01:17 Urine Appearance Clear (CLEAR) 08/15/16 01:17 Urine pH 6.5 (4.7-8.0) 08/15/16 01:17 Ur Specific [place] 1.010 (1.005-1.035) 08/15/16 01:17 Urine Protein 30 mg/dL (<30 mg/dL) H 08/15/16 01:17 Urine Glucose (UA) Negative mg/dL (NEGATIVE) 08/15/16 01:17 Urine Ketones Negative mg/dL (NEGATIVE) 08/15/16 01:17 Urine Blood Trace-lysed (NEGATIVE) H 08/15/16 01:17 Urine Nitrate Negative (NEGATIVE) 08/15/16 01:17 Urine Bilirubin Negative (NEGATIVE) 08/15/16 01:17 Urine Urobilinogen 1.0 E.U./dL (<1 E.U./dL) H 08/15/16 01:17 Ur Leukocyte Esterase Negative Amor/uL (NEGATIVE) 08/15/16 01:17 Urine RBC 15 - 20 /hpf (0-2) 08/15/16 01:17 Urine WBC 2 - 5 /hpf (0-6) 08/15/16 01:17 Ur Epithelial Cells 6 - 8 /hpf (0-5) 08/15/16 01:17 Urine Opiates Screen Negative (NEGATIVE) 08/15/16 01:17 Urine Methadone Screen Negative (NEGATIVE) 08/15/16 01:17 Ur Barbiturates Screen Negative (NEGATIVE) 08/15/16 01:17 Ur Phencyclidine Scrn Negative (NEGATIVE) 08/15/16 01:17 Ur Amphetamines Screen Negative (NEGATIVE) 08/15/16 01:17 U Benzodiazepines Scrn Negative (NEGATIVE) 08/15/16 01:17 U Oth Cocaine Metabols Negative (NEGATIVE) 08/15/16 01:17 U Cannabinoids Screen Negative (NEGATIVE) 08/15/16 01:17 Alcohol, Quantitative 427 mg/dL (0-10) H* 08/14/16 21:25 RPR Nonreactive (NONREACTIVE) 08/15/16 01:55 Hepatitis A IgM Ab Negative (NEGATIVE) 08/15/16 01:55 Hep Bs Antigen Negative (NEGATIVE) 08/15/16 01:55 Hep B Core IgM Ab Negative (NEGATIVE) 08/15/16 01:55 Hepatitis C Antibody Negative (NEGATIVE) 08/15/16 01:55 HIV 1&2 Ag/Ab, 4th Gen Nonreactive (Nonreactive) 08/15/16 01:55 - Hospital Course Hospital Course: This patient is a 46yo M w/ a PMHx of EtOH abuse/dependence, CHF with unknown EF , who is presenting to the ED w/ a 1d history of chest pain, left sided, constant but now gone. The patient states that he was doing pushups earlier today, and started to feel chest pain. he threw up once nbnb. He states that he has had decreased exercise tolerance over the past few months, and sleeps with 2 pillows, and never wakes up gasping for breath in the middle of the night. He states he had a catheritization at the age of 19, but has no stents. he smokes 2 cigarettes per day. denies other drugs. patient states that he drinks 2-3 pints of vodka every day for the past 20 years. He admits to extreme withdrawals in the past, where he hallucinates and gets violent during other hospitalizations. Pt was admitted for evaluation of short episode of chest pain which got resolved upon admission. Serial troponin negative. EKG showed non specific ST T wave changes. Patient was going thru active alcohol withdrawal , placed on CIWA protocol and subsequently began on librium taper. He admitted to withdrawal sx including anxiety, tremors,and visual / auditory hallucinations. He states that he felt better after taking librium. Will continue librium and start po thiamine, folic acid and MVI. His BP was noted to be high. Will restart his home meds. Will provide counseling for alcohol abuse once he is more awake. PT eval placed and was eventually cleared to sd home. He was educated on the importance of PMD and Cardiology fu. He will be needing an outpt stress test as his echo was abn. Pt will fu with PMD Dr Yanez. Discharge Exam - Head Exam Head Exam: ATRAUMATIC, NORMAL INSPECTION, NORMOCEPHALIC - Eye Exam Eye Exam: Normal appearance, PERRL Pupil Exam: NORMAL ACCOMODATION, PERRL - ENT Exam ENT Exam: Mucous Membranes Moist - Respiratory Exam Respiratory Exam: Clear to PA & Lateral, NORMAL BREATHING PATTERN, UNREMARKABLE - Cardiovascular Exam Cardiovascular Exam: REGULAR RHYTHM, +S1, +S2 - GI/Abdominal Exam GI & Abdominal Exam: Normal Bowel Sounds - Extremities Exam Extremities exam: normal inspection - Back Exam Back exam: NORMAL INSPECTION - Neurological Exam Neurological exam: Alert, CN II-XII Intact, Normal Gait, Oriented x3, Reflexes Normal - Psychiatric Exam Psychiatric exam: Normal Affect, Normal Mood - Skin Skin Exam: Dry, Intact, Normal Color, Warm Discharge Plan - Discharge Medications Prescriptions: amLODIPine [Norvasc] 10 mg PO DAILY 30 Days Aspirin [Ecotrin] 81 mg PO DAILY 30 Days Atorvastatin [Lipitor] 20 mg PO DIN 30 Days Carvedilol [Coreg] 6.25 mg PO BID 30 Days chlordiazePOXIDE [Librium] 5 mg PO Q8 PRN #2 cap PRN Reason: Agitation Folic Acid 1 mg PO DAILY 30 Days Multimineral/Multivitamin [Therapeutic-M Tab] 1 tab PO DAILY 30 Days Thiamine [Vitamin B1 Tab] 100 mg PO DAILY 30 Days Torsemide [Demadex] 5 mg PO DAILY 30 Days - Follow Up Plan Condition: STABLE Disposition: HOME/ ROUTINE Instructions: Chest Pain (DC), Chest Pain (GEN), How to Stop Smoking (DC), Abuse of Alcohol (DC) Additional Instructions: 1. Pt is to fu with PMD Dr. Medina within 3-5 days 2. Pt is to fu with cardiology of personal choice or as per PMD for stress test 3. Pt is encouraged to seek local AA meetings, pt conuselled and provided AA information, states he already has an established group meeting 4. Pt is welcome to [place] [facility] [place] if develop acute symptoms. Referrals: Padmini Yanez MD [Primary Care Provider] - <Samy Tong - Last Filed: 09/08/16 14:23> Provider - Provider Date of Admission: 08/16/16 10:53 Attending physician: Samy Tong MD Primary care physician: Padmini Yanez MD Hospital Course - Lab Results Lab Results: Most Recent Lab Values WBC 8.8 10^3/ul (4.5-11.0) D 08/17/16 09:45 RBC 4.40 10^6/uL (3.5-6.1) 08/17/16 09:45 Hgb 12.2 gm/dL (14.0-18.0) L 08/17/16 09:45 Hct 36.3 % (42.0-52.0) L 08/17/16 09:45 MCV 82.5 fL (80.0-105.0) 08/17/16 09:45 MCH 27.7 pg (25.0-35.0) 08/17/16 09:45 MCHC 33.6 g/dl (31.0-37.0) 08/17/16 09:45 RDW 15.0 % (11.5-14.5) H 08/17/16 09:45 Plt Count 271 10^3/uL (120.0-450.0) 08/17/16 09:45 MPV 9.7 fl (7.0-11.0) 08/17/16 09:45 Gran % 67.3 % (50.0-68.0) 08/17/16 09:45 Lymph % (Auto) 22.9 % (22.0-35.0) 08/17/16 09:45 [place] % (Auto) 5.9 % (1.0-6.0) 08/17/16 09:45 Eos % (Auto) 3.7 % (1.5-5.0) 08/17/16 09:45 Baso % (Auto) 0.2 % (0.0-3.0) 08/17/16 09:45 Gran # 5.93 (1.4-6.5) 08/17/16 09:45 Lymph # 2.0 (1.2-3.4) 08/17/16 09:45 [place] # 0.5 (0.1-0.6) 08/17/16 09:45 Eos # 0.3 (0.0-0.7) 08/17/16 09:45 Baso # 0.02 K/mm3 (0.0-2.0) 08/17/16 09:45 PT 11.1 Seconds (9.9-11.8) 08/14/16 21:25 INR 1.03 (0.93-1.08) 08/14/16 21:25 APTT 25.9 Seconds (23.7-30.8) 08/14/16 21:25 Sodium 133 mmol/L (132-148) 08/17/16 05:00 Potassium 3.6 mmol/L (3.6-5.0) 08/17/16 05:00 Chloride 97 mmol/L (98-107) L 08/17/16 05:00 Carbon Dioxide 26 mmol/L (21-33) 08/17/16 05:00 Anion Gap 14 (10-20) 08/17/16 05:00 BUN 11 mg/dL (7-21) 08/17/16 05:00 Creatinine 1.0 mg/dL (0.5-1.4) 08/17/16 05:00 Est GFR ( Amer) > 60 08/17/16 05:00 Est GFR (Non-Af Amer) > 60 08/17/16 05:00 Random Glucose 108 mg/dL (70-110) 08/17/16 05:00 Hemoglobin A1c 5.1 % (4.2-6.5) 08/15/16 01:55 Calcium 10.2 mg/dL (8.4-10.5) 08/17/16 05:00 Phosphorus 3.8 mg/dL (2.5-4.5) 08/17/16 05:00 Magnesium 1.5 mg/dL (1.7-2.2) L 08/17/16 05:00 Iron 75 ug/dL (45-180) 08/15/16 01:55 TIBC 280 ug/dL (261-462) 08/15/16 01:55 % Saturation 27 % (20-55) 08/15/16 01:55 Ferritin 66.1 ng/mL 08/15/16 01:55 Total Bilirubin 1.3 mg/dL (0.2-1.3) 08/17/16 05:00 AST 34 U/L (15-59) 08/17/16 05:00 ALT 37 U/L (7-56) 08/17/16 05:00 Alkaline Phosphatase 57 U/L (38-133) 08/17/16 05:00 Lactate Dehydrogenase 477 U/L (333-699) 08/14/16 21:25 Total Creatine Kinase 560 U/L (35-230) H 08/14/16 21:25 CK-MB (CK-2) 2.2 ng/mL (0.0-3.6) 08/14/16 21:25 CK-MB (CK-2) % Cancelled 08/14/16 21:25 Troponin I < 0.01 ng/mL 08/15/16 11:30 NT-Pro-B Natriuret Pep 208 pg/mL (0-450) 08/15/16 01:55 Total Protein 7.6 g/dL (5.8-8.3) 08/17/16 05:00 Albumin 4.3 g/dL (3.0-4.8) 08/17/16 05:00 Globulin 3.3 gm/dL 08/17/16 05:00 Albumin/Globulin Ratio 1.3 (1.1-1.8) 08/17/16 05:00 Triglycerides 66 mg/dL (35-160) 08/15/16 01:55 Cholesterol 352 mg/dL (130-200) H 08/15/16 01:55 LDL Cholesterol Direct 151 mg/dL (0-129) H 08/15/16 01:55 HDL Cholesterol 166 mg/dL (29-60) H 08/15/16 01:55 Vitamin B12 634 pg/mL (239-931) 08/15/16 01:55 Folate 8.4 ng/mL 08/15/16 01:55 Free T4 1.30 ng/dL (0.78-2.19) 08/15/16 01:55 TSH 3rd Generation 1.22 mIU/mL (0.46-4.68) 08/15/16 01:55 Urine Color Liz (YELLOW) 08/15/16 01:17 Urine Appearance Clear (CLEAR) 08/15/16 01:17 Urine pH 6.5 (4.7-8.0) 08/15/16 01:17 Ur Specific [place] 1.010 (1.005-1.035) 08/15/16 01:17 Urine Protein 30 mg/dL (<30 mg/dL) H 08/15/16 01:17 Urine Glucose (UA) Negative mg/dL (NEGATIVE) 08/15/16 01:17 Urine Ketones Negative mg/dL (NEGATIVE) 08/15/16 01:17 Urine Blood Trace-lysed (NEGATIVE) H 08/15/16:17 Urine Nitrate Negative (NEGATIVE) 08/15/16:17 Urine Bilirubin Negative (NEGATIVE) 08/15/16 01:17 Urine Urobilinogen 1.0 E.U./dL (<1 E.U./dL) H 08/15/16 01:17 Ur Leukocyte Esterase Negative Amor/uL (NEGATIVE) 08/15/16 01:17 Urine RBC 15 - 20 /hpf (0-2) 06/10/17 01:17 Urine WBC 2 - 5 /hpf (0-6) 08/15/16 01:17 Ur Epithelial Cells 6 - 8 /hpf (0-5) 08/15/16 01:17 Urine Opiates Screen Negative (NEGATIVE) 08/15/16 01:17 Urine Methadone Screen Negative (NEGATIVE) 08/15/16 01:17 Ur Barbiturates Screen Negative (NEGATIVE) 08/15/16 01:17 Ur Phencyclidine Scrn Negative (NEGATIVE) 08/15/16 01:17 Ur Amphetamines Screen Negative (NEGATIVE) 08/15/16 01:17 U Benzodiazepines Scrn Negative (NEGATIVE) 08/15/16 01:17 U Oth Cocaine Metabols Negative (NEGATIVE) 08/15/16 01:17 U Cannabinoids Screen Negative (NEGATIVE) 08/15/16 01:17 Alcohol, Quantitative 427 mg/dL (0-10) H* 08/14/16 21:25 RPR Nonreactive (NONREACTIVE) 08/15/16 01:55 Hepatitis A IgM Ab Negative (NEGATIVE) 08/15/16 01:55 Hep Bs Antigen Negative (NEGATIVE) 08/15/16 01:55 Hep B Core IgM Ab Negative (NEGATIVE) 08/15/16 01:55 Hepatitis C Antibody Negative (NEGATIVE) 08/15/16 01:55 HIV 1&2 Ag/Ab, 4th Gen Nonreactive (Nonreactive) 08/15/16 01:55 Attending/Attestation - Attestation I have personally seen and examined this patient.: Yes I have fully participated in the care of the patient.: Yes I have reviewed all pertinent clinical information, including history, physical exam and plan: Yes Notes (Text): I have seen and examined patient at bedside. Agree with the note dictated by the resident. Counselling provided for alcohol abuse. He needs outpatient stress test. Upon discharge patient will follow up with Dr Yanez. Dr Samy Tong
== END 2016-08-17 13:51 | disposition home or self-care (01) | DRG 750 ==
LOC: ED 21:02 → ERH 08-15 00:31 → 2RNO 08-15 04:49 → OBSVTOIN 08-16 10:53 → 3RSO 08-16 16:23
PROVIDERS: ADMIT Hospitalist; ATTEND Hospitalist
DX: F10.239 Alcohol dependence with withdrawal, unspecified (principal); I11.0 Hypertensive heart disease with heart failure; I50.22 Chronic systolic (congestive) heart failure; I08.1 Rheumatic disorders of both mitral and tricuspid valves; F10.229 Alcohol dependence with intoxication, unspecified; Y90.8 Blood alcohol level of 240 mg/100 ml or more; F41.9 Anxiety disorder, unspecified; I25.2 Old myocardial infarction; Z87.891 Personal history of nicotine dependence; R40.2412 Glasgow coma scale score 13-15, at arrival to emergency department

== ENCOUNTER 2017-04-12 01:10 | Emergency (ER) | payer MEDICAID ==
[2017-04-12 01:11] VITALS: BMI 27.3
--- NOTE | 2017-04-12 01:34 | ED PDOC ---
Arrival/HPI - General Chief Complaint: Alcohol Ingestion Time Seen by Provider: 04/12/17 01:22 Historian: Patient, EMS - History of Present Illness Narrative History of Present Illness (Text): 04/12/17 01:33 León Raymundo is a 46 year old male, who was brought to the Emergency department by EMS for public intoxication. [place] and admits to drinking alcohol tonight. Patient denies any fever, chills, chest pain , shortness of breath, nausea, vomiting, diarrhea, urinary symptoms, back pain, neck pain, headache, dizziness, trauma/injury, suicidal/homicidal ideation or any other complaints. Time/Duration: Other (tonight) Symptom Onset: Gradual Symptom Course: Unchanged Activities at Onset: Light Context: Other (park) Past Medical History - Provider Review Nursing Documentation Reviewed: Yes - Travel History Have you recently traveled outside [place] w/in the past 3 mons?: No - Past History Past History: Non-Contributing - Infectious Disease Hx of Infectious Diseases: None - Tetanus Immunization Tetanus Immunization: Unknown - Cardiac Hx Cardiac Arrhythmia: No Hx Congestive Heart Failure: Yes Hx Hypertension: Yes Hx Mitral Valve Prolapse: No Hx Pacemaker: No Hx Peripheral Edema: No - Pulmonary Hx Asthma: Yes (as a child) Hx Bronchitis: No Hx Chronic Obstructive Pulmonary Disease (COPD): No Hx Emphysema: No Hx Pneumonia: No Hx Sleep Apnea: No - Neurological Hx Alzheimer's Disease: No Hx Dementia: No Hx Migraine: No Hx Parkinson's Disease: No Hx Seizures: No Hx Transient Ischemic Attacks (TIA): No - HEENT Hx HEENT Disorder: No - Renal Hx Renal Disorder: No Hx Kidney Stones: No - Endocrine/Metabolic Hx Hyperthyroidism: No Hx Hypothyroidism: No - Hematological/Oncological Hx Anemia: No Hx Sickle Cell Disease: No - Integumentary Hx Dermatological Disorder: No - Musculoskeletal/Rheumatological Hx Arthritis: No Hx Fractures: No Hx Osteoporosis: No - Gastrointestinal Hx Crohn's Disease: No Hx Diverticulitis: No Hx Gall Bladder Disease: No Hx Gastrointestinal Ulcer: No Hx Pancreatitis: Yes - Genitourinary/Gynecological Hx Sexually Transmitted Diseases: No - Psychiatric Hx Anxiety: Yes Hx Bipolar Disorder: No Hx Depression: Yes Hx Post Traumatic Stress Disorder: No Hx Schizophrenia: No Hx Substance Use: No - Surgical History Hx Appendectomy: No Hx Cholecystectomy: No Hx Coronary Stent: Yes - Anesthesia Hx Anesthesia: Yes Hx Anesthesia Reactions: No Hx Malignant Hyperthermia: No - Suicidal Assessment Feels Threatened In Home Enviroment: No Family/Social History - Physician Review Nursing Documentation Reviewed: Yes Family/Social History: Unknown Family HX Smoking Status: Light Smoker < 10 Cigarettes Daily Hx Alcohol Use: Yes Hx Substance Use: No Substance used: marijuana Allergies/Home Meds Allergies/Adverse Reactions: Allergies No Known Allergies Allergy (Verified 04/12/17 01:49) Home Medications: Home Meds Medication Instructions Recorded Confirmed Aspirin [Aspirin Chewable] 81 mg PO DAILY 04/18/16 06/12/16 Carvedilol [Coreg] 12.5 mg PO DAILY 04/18/16 06/12/16 Review of Systems - Physician Review All systems were reviewed & negative as marked: Yes - Review of Systems Constitutional: Normal. absent: Fevers Eyes: Normal ENT: Normal Respiratory: Normal. absent: SOB, Cough Cardiovascular: Normal. absent: Chest Pain Gastrointestinal: Normal. absent: Abdominal Pain, Diarrhea, Nausea, Vomiting Genitourinary Male: Normal. absent: Dysuria, Frequency, Hematuria, Urinary Output Changes Musculoskeletal: Normal. absent: Back Pain, Neck Pain Skin: Normal. absent: Rash Neurological: absent: Headache, Dizziness Endocrine: Normal Hemo/Lymphatic: Normal Psychiatric: Other (+alcohol intoxication) Physical Exam Vital Signs Reviewed: Yes Vital Signs Temp Pulse Resp BP Pulse Ox 04/12/17 06:17 92 H 16 139/88 94 L 04/12/17 04:25 88 17 112/87 96 04/12/17 02:17 97.8 F 84 18 152/82 H 96 Temperature: Afebrile Blood Pressure: Normal Pulse: Regular Respiratory Rate: Normal Appearance: Positive for: Well-Appearing, Non-Toxic, Comfortable Pain Distress: None Mental Status: Positive for: Alert and Oriented X 3 - Systems Exam Head: Present: Atraumatic, Normocephalic Pupils: Present: PERRL Extroacular Muscles: Present: EOMI Conjunctiva: Present: Normal Mouth: Present: Moist Mucous Membranes Neck: Present: Normal Range of Motion Respiratory/Chest: Present: Clear to Auscultation, Good Air Exchange. No: Respiratory Distress, Accessory Muscle Use Cardiovascular: Present: Regular Rate and Rhythm, Normal S1, S2. No: Murmurs Abdomen: Present: Normal Bowel Sounds. No: Tenderness, Distention, Peritoneal Signs Back: Present: Normal Inspection Upper Extremity: Present: Normal Inspection. No: Cyanosis, Edema Lower Extremity: Present: Normal Inspection. No: Edema Neurological: Present: GCS=15, CN II-XII Intact, Speech Normal Skin: Present: Warm, Dry, Normal Color. No: Rashes Psychiatric: Present: Alert, Oriented x 3, Normal Insight, Normal Concentration Medical Decision Making ED Course and Treatment: 04/12/17 01:38 Impression: 46 year old male brought to the Emergency department for public intoxication. Differential Diagnosis included but are not limited to: alcohol intoxication Plan: -- Reassess and disposition Progress Notes: 04/12/17 06:19 Pt awake, alert, ambulating with steady gait. Clinically sober. Pt stable for d/ c. - Scribe Statement The provider has reviewed the documentation as recorded by the Reuben faust under Kathy Gibson. All medical record entries made by the Scribe were at my direction and personally dictated by me. I have reviewed the chart and agree that the record accurately reflects my personal performance of the history, physical exam, medical decision making, and the department course for this patient. I have also personally directed, reviewed, and agree with the discharge instructions and disposition. Disposition/Present on Arrival - Present on Arrival Any Indicators Present on Arrival: No History of DVT/PE: No History of Uncontrolled Diabetes: No Urinary Catheter: No History of Decub. Ulcer: No History Surgical Site Infection Following: None - Disposition Have Diagnosis and Disposition been Completed?: Yes Diagnosis: Alcohol use Disposition: HOME/ ROUTINE Disposition Time: 07:00 Condition: GOOD Discharge Instructions (ExitCare): Abuse of Alcohol (ED) Referrals: Alcoholics Anonymous [Outside] - Follow up with primary Forms: [employer] (Swazi)
[2017-04-12 02:18] VITALS: TEMP 97.8
[2017-04-12 06:18] VITALS: BP 139/88; PULSE 92; RESP 16; O2SAT 94
== END 2017-04-12 06:35 | disposition home or self-care (01) ==
LOC: ED 01:10
DX: Z72.89 Other problems related to lifestyle (principal); F17.210 Nicotine dependence, cigarettes, uncomplicated; I10 Essential (primary) hypertension; I50.9 Heart failure, unspecified

== ENCOUNTER 2017-06-15 15:26 | Inpatient (IN) | payer MEDICAID, OTHER ==
--- NOTE | 2017-06-15 16:34 | RAD ---
HISTORY: cp COMPARISON: 08/14/2016 FINDINGS: LUNGS: No active pulmonary disease. PLEURA: No significant pleural effusion identified, no pneumothorax apparent. CARDIOVASCULAR: Normal. OSSEOUS STRUCTURES: No significant abnormalities. VISUALIZED UPPER ABDOMEN: Normal. OTHER FINDINGS: None. IMPRESSION: No active disease.
[2017-06-15 16:46] LABS: BASO # 0.07 K/mm3 (0.0-2.0); EOS % 0.6 % (1.5-5.0); GRAN # 3.65 (1.4-6.5); GRAN % 53.1 % (50.0-68.0); HEMOGLOBIN 11.7 g/dL (14.0-18.0); LYMPH # 2.9 (1.2-3.4); LYMPH % 42.1 % (22.0-35.0); MEAN CELL VOLUME 84.1 fl (80.0-105.0); MEAN CORPUSCULAR HEMOGLOBIN 28.3 pg (25.0-35.0); MEAN CORPUSCULAR HGB CONC 33.6 g/dl (31.0-37.0); MEAN PLATELET VOLUME 9.3 fl (7.0-11.0); MONO # 0.2 (0.1-0.6); MONO % 3.2 % (1.0-6.0); RBC 4.14 10^6/uL (3.5-6.1); RED CELL DISTRIBUTION WIDTH 15.2 % (11.5-14.5); WHITE BLOOD COUNT 6.9 10^3/ul (4.5-11.0)
[2017-06-15 16:56] LABS: ALB/GLOB RATIO 1.4 (1.1-1.8); ALBUMIN 4.3 g/dL (3.0-4.8); ALT/SGPT 38 U/L (7-56); AST/SGOT 62 U/L (17-59); BLOOD UREA NITROGEN 11 mg/dL (7-21); CALCIUM 9.3 mg/dL (8.4-10.5); GFR AFRICAN-AMERICAN > 60; GFR NON-AFRICAN AMERICAN > 60; LIPASE 204 U/L (23-300)
[2017-06-15 17:07] LABS: B-TYPE NATRIURETIC PEPTIDE 12.3 pg/mL (0-450); TROPONIN I < 0.01 ng/mL
[2017-06-15 17:10] LABS: INR 0.94 (0.93-1.08); PROTHROMBIN TIME 10.7 SECONDS (9.4-12.5)
[2017-06-15 17:11] LABS: PARTIAL THROMBOPLASTIN TIME 27.7 Seconds (25.1-36.5)
[2017-06-15 17:12] LABS: CK-MB 3.4 ng/mL (0.0-3.6)
--- NOTE | 2017-06-15 17:33 | ED PDOC ---
Arrival/HPI - General Historian: Patient - History of Present Illness Time/Duration: < week Symptom Course: Intermittent Quality: Pressure Severity Level: 6 Activities at Onset: Rest <Prince Chakraborty - Last Filed: 06/15/17 19:07> <Mahnaz Peña - Last Filed: 06/17/17 21:14> - General Chief Complaint: Chest Pain Time Seen by Provider: 06/15/17 15:50 - History of Present Illness Narrative History of Present Illness (Text): 06/15/17 17:33 46 yo M with PMH Anxiety, Asthma (as a child), CHF, Depression, HTN, Hypercholesterolemia, and Pancreatitis, as well reported history of CAD presents c/o midsternal chest pain for the past 3 days, intermittent, 10-12 times/day lasting 15-20 seconds, 6-7/10 intensity, radiated sometimes to left arm, "feels like someone is sitting on my chest." No particular exacerbating or remitting factors. Does not currently have any chest pain. He denies fever, cough, SOB, nausea, vomiting, abd pain, diarrhea. Patient does report history of cardiac catheterization, but no stents were placed. Patient also complaining of alcohol withdrawal. Reports that he drinks 4-5 pints of vodka daily, last drink approximately 2 hours prior to presentation. He denies hallucinations, homicidal ideation, suicidal ideation, nausea, vomiting, diarrhea, constipation , abdominal pain. (Prince Chakraborty) Past Medical History - Infectious Disease Hx of Infectious Diseases: None - Tetanus Immunization Tetanus Immunization: Unknown - Cardiac Hx Coronary Artery Disease: Yes Hx Cardiac Arrhythmia: No Hx Congestive Heart Failure: Yes Hx Hypertension: Yes Hx Mitral Valve Prolapse: No Hx Pacemaker: No Hx Peripheral Edema: No - Pulmonary Hx Asthma: Yes (as a child) Hx Bronchitis: No Hx Chronic Obstructive Pulmonary Disease (COPD): No Hx Emphysema: No Hx Pneumonia: No Hx Sleep Apnea: No - Neurological Hx Alzheimer's Disease: No Hx Dementia: No Hx Migraine: No Hx Parkinson's Disease: No Hx Seizures: No Hx Transient Ischemic Attacks (TIA): No - HEENT Hx HEENT Disorder: No - Renal Hx Renal Disorder: No Hx Kidney Stones: No - Endocrine/Metabolic Hx Hyperthyroidism: No Hx Hypothyroidism: No - Hematological/Oncological Hx Anemia: No Hx Sickle Cell Disease: No - Integumentary Hx Dermatological Disorder: No - Musculoskeletal/Rheumatological Hx Arthritis: No Hx Fractures: No Hx Osteoporosis: No - Gastrointestinal Hx Crohn's Disease: No Hx Diverticulitis: No Hx Gall Bladder Disease: No Hx Gastrointestinal Ulcer: No Hx Pancreatitis: Yes - Genitourinary/Gynecological Hx Sexually Transmitted Diseases: No - Psychiatric Hx Anxiety: Yes Hx Bipolar Disorder: No Hx Depression: Yes Hx Paranoia: No Hx Post Traumatic Stress Disorder: No Hx Schizophrenia: No Hx Substance Use: No - Surgical History Hx Appendectomy: No Hx Cholecystectomy: No Hx Coronary Stent: Yes - Anesthesia Hx Anesthesia: Yes - Suicidal Assessment Feels Threatened In Home Enviroment: No <Prince Chakraborty - Last Filed: 06/15/17 19:07> <Mahnaz Peña - Last Filed: 06/17/17 21:14> - Patient History Narrative Patient History: Heart disease (per patient) (Prince Chakraborty) Family/Social History Family/Social History: Unknown Family HX Smoking Status: Heavy Smoker > 10 Cigarettes Daily Hx Alcohol Use: Yes Frequency of alcohol use: Daily Amount per day: 5 (pints vodka) Hx Substance Use: Yes Substance used: marijuana Route: Smoking/Inhalation <Prince Chakraborty - Last Filed: 06/15/17 19:07> Allergies/Home Meds <Prince Chakraborty - Last Filed: 06/15/17 19:07> <Mahnaz Peña - Last Filed: 06/17/17 21:14> Allergies/Adverse Reactions: Allergies No Known Allergies Allergy (Verified 06/15/17 18:03) Home Medications: Home Meds Medication Instructions Recorded Confirmed Atorvastatin [Lipitor] 40 mg PO DAILY 05/16/17 06/15/17 Carvedilol [Coreg] 25 mg PO Q12 05/16/17 06/15/17 Isosorbide Mononitrate [Isosorbide 30 mg PO DAILY 05/16/17 06/15/17 Mononitrate ER] Pantoprazole [Protonix] 40 mg PO DAILY 05/16/17 06/15/17 Spironolactone [Aldactone] 25 mg PO DAILY 05/16/17 06/15/17 Review of Systems - Review of Systems Constitutional: Normal Eyes: Normal ENT: Normal Respiratory: Normal Cardiovascular: Chest Pain. absent: Palpitations, Edema, Calf Pain, LARSEN, Orthopnea, Syncope Gastrointestinal: Normal. absent: Abdominal Pain Genitourinary Male: Normal Musculoskeletal: Normal Skin: Normal Neurological: Normal Endocrine: Normal Hemo/Lymphatic: Normal Psychiatric: Normal. absent: Anxiety, Depression, Suicidal Ideation <Prince Chakraborty - Last Filed: 06/15/17 19:07> Physical Exam Vital Signs Reviewed: Yes Temperature: Afebrile Blood Pressure: Normal Pulse: Regular Respiratory Rate: Normal Appearance: Positive for: Well-Appearing, Non-Toxic, Comfortable Pain Distress: None Mental Status: Positive for: Alert and Oriented X 3 - Systems Exam Head: Present: Atraumatic, Normocephalic Pupils: Present: PERRL Extroacular Muscles: Present: EOMI Conjunctiva: Present: Normal Mouth: Present: Moist Mucous Membranes Neck: Present: Normal Range of Motion Respiratory/Chest: Present: Clear to Auscultation, Good Air Exchange Cardiovascular: Present: Regular Rate and Rhythm, Normal S1, S2 Abdomen: Present: Normal Bowel Sounds. No: Tenderness, Distention Upper Extremity: Present: Normal Inspection. No: Cyanosis, Edema Lower Extremity: Present: Normal Inspection. No: Edema, CALF TENDERNESS Neurological: Present: GCS=15, CN II-XII Intact, Speech Normal Skin: Present: Warm, Dry, Normal Color Psychiatric: Present: Alert, Oriented x 3, Normal Insight. No: Normal Concentration <Prince Chakraborty - Last Filed: 06/15/17 19:07> Vital Signs Temp Pulse Resp BP Pulse Ox 06/15/17 21:54 62 18 134/87 100 06/15/17 20:34 72 18 138/72 100 06/15/17 18:38 59 L 18 131/71 100 06/15/17 15:38 98.3 F 58 L 18 135/78 100 Medical Decision Making Reassessment Condition: Re-examined, Unchanged - Lab Interpretations Interpretation: No sign. chg./baseline - RAD Interpretation Jumpbasting Lining Baster: Radiologist - EKG Interpretation Type: 12 lead EKG Comparison: Similar to previous EKG <Prince Chakraborty - Last Filed: 06/15/17 19:07> <Mahnaz Peña - Last Filed: 06/17/17 21:14> ED Course and Treatment: 06/15/17 16:14 Patient not currently complaining of chest pain. Ordered CBC, CMP, PT/PTT, Cardiac ISO, EKG, CXR to rule out myocardial ischemia, given 3 day course of chest pain, and history of CHF and questionable history of CAD Patient has pleasant demeanor, but does not appear acutely inebriated, though last reported drink was only 2 hours prior to presentation, and patient was at [facility] early this morning for alcohol intoxication. Placed on school lunch monitor. 06/15/17 17:15 Labs unremarkable. EKG shows NSR, unchanged from prior EKG. Troponin negative. CXR shows no active disease. Patient requesting alcohol detoxification. Patient informed that Detox is not offered at this hospital, and will require PES eval for possible transfer/ acceptance to [facility] Detox program. Patient agreeable to PES evaluation. Patient feels anxious and uncomfortable. Ordered Librium 50mg PO once for subjective signs of alcohol withdrawal. Requested PES evaluation 06/15/17 19:07 PES seen evaluating patient at bedside. Patient has been medically cleared to transfer to detox facility for alcohol detox. Will follow PES recommendatinos. Patient endorsed to Dr. Landa who will assume care at this time. (Prince Chakraborty) - Lab Interpretations Lab Results: 06/15/17 16:35 06/15/17 16:35 Lab Results 06/15/17 16:35: Alcohol, Quantitative 346 H* 06/15/17 16:35: PT 10.7, INR 0.94, APTT 27.7 06/15/17 16:35: Sodium 146, Potassium 3.9, Chloride 105, Carbon Dioxide 25, Anion Gap 20, BUN 11, Creatinine 0.8, Est GFR ( Amer) > 60, Est GFR (Non- Af Amer) > 60, Random Glucose 78, Calcium 9.3, Magnesium 1.9, Total Bilirubin 0.8, AST 62 H D, ALT 38, Alkaline Phosphatase 64, Lactate Dehydrogenase 549, Total Creatine Kinase 523 H, CK-MB (CK-2) 3.4, CK-MB (CK-2) % Cancelled, Troponin I < 0.01, NT-Pro-B Natriuret Pep 12.3, Total Protein 7.4, Albumin 4.3, Globulin 3.1, Albumin/Globulin Ratio 1.4, Lipase 204 06/15/17 16:35: WBC 6.9 D, RBC 4.14, Hgb 11.7 L, Hct 34.8 L, MCV 84.1, MCH 28.3 , MCHC 33.6, RDW 15.2 H, Plt Count 362, MPV 9.3, Gran % 53.1, Lymph % (Auto) 42.1 H, [place] % (Auto) 3.2, Eos % (Auto) 0.6 L, Baso % (Auto) 1.0, Gran # 3.65, Lymph # (Auto) 2.9, [place] # (Auto) 0.2, Eos # (Auto) 0.0, Baso # (Auto) 0.07 - RAD Interpretation Radiology Orders: 06/15/17 16:09 CHEST PORTABLE [RAD] Stat - Medication Orders Current Medication Orders: Aspirin (Aspirin Chewable) 81 mg PO DAILY [facility] Last Admin: 06/17/17 09:50 Dose: 81 mg Atorvastatin Calcium (Lipitor) 40 mg PO DAILY [facility] Last Admin: 06/17/17 09:50 Dose: 40 mg Carvedilol (Coreg) 25 mg PO Q12 [facility] Last Admin: 06/17/17 09:51 Dose: 25 mg MAR Pulse and Blood Pressure Document 06/17/17 09:51 (Rec: 06/17/17 09:51 [id number] Pulse Pulse Rate (60-90) 78 Blood Pressure Blood Pressure (100/60-150/90) 146/98 Clonidine HCl (Catapres) 0.1 mg PO Q6 PRN PRN Reason: SBP > 160 DBP > 90 Famotidine (Pepcid) 20 mg PO 1000,2200 [facility] Last Admin: 06/17/17 09:52 Dose: 20 mg Folic Acid (Folic Acid) 1 mg PO DAILY [facility] Last Admin: 06/17/17 09:52 Dose: 1 mg Isosorbide Mononitrate (Imdur Er) 30 mg PO DAILY [facility] Last Admin: 06/17/17 09:52 Dose: 30 mg Lorazepam (Ativan) 1 mg IVP Q6H [facility] PRN Reason: Protocol Last Admin: 06/17/17 15:50 Dose: 1 mg IVP Administration Document 06/17/17 15:50 (Rec: 06/17/17 15:51 [id number] Charges for Administration # of IVP Administrations 1 Behavioural Document 06/17/17 15:50 (Rec: 06/17/17 15:51 [id number]) Maintenance Maintenance Dose Yes Nonmedicinal Nonmedicinal Interventions Redirect Therapeutic Communication Behavior Behavior for Medication: Anxiety Re-Assess: Reassess Psych Meds Document 06/17/17 16:20 VM (Rec: 06/17/17 17:00 [id number]) Reassess Psych Med Effective Lorazepam (Ativan) 0.5 mg IVP Q4H PRN; Protocol PRN Reason: Symptoms of alcohol withdrawl Magnesium Oxide (Mag-Ox) 400 mg PO DAILY [facility] Last Admin: 06/17/17 09:51 Dose: 400 mg Multivitamins (Thera Tab) 1 tab PO 0800 [facility] Last Admin: 06/17/17 09:50 Dose: 1 tab Nicotine (Nicoderm Cq) 1 patch TD DAILY [facility] Last Admin: 06/17/17 09:52 Dose: Not Given Non-Admin Reason: Patient Refused Spironolactone (Aldactone) 25 mg PO DAILY [facility] Last Admin: 06/17/17 09:52 Dose: 25 mg Thiamine HCl (Vitamin B1 Tab) 100 mg PO DAILY [facility] Last Admin: 06/17/17 09:52 Dose: 100 mg Discontinued Medications Aspirin (Aspirin) 325 mg PO STAT STA Stop: 06/15/17 22:34 Last Admin: 06/15/17 22:45 Dose: 325 mg Chlordiazepoxide (Librium) 50 mg PO STAT STA PRN Reason: Protocol Stop: 06/15/17 17:31 Last Admin: 06/15/17 18:06 Dose: 50 mg Folic Acid (Folic Acid) 1 mg PO STAT STA Stop: 06/15/17 21:55 Last Admin: 06/15/17 22:45 Dose: 1 mg Multivitamins/Vitamin C 10 ml/Thiamine HCl 100 mg/ Folic Acid 1 mg/ Sodium Chloride 1,011.2 mls @ 1,000 mls/hr IV .Q1H1M ONE Stop: 06/15/17 21:10 Last Admin: 06/15/17 20:44 Dose: 1,000 mls/hr eMAR Start Stop Document 06/15/17 20:44 HI (Rec: 06/15/17 20:52 HI [id number]) Intravenous Solution Start Date 06/15/17 Start Time 20:52 Magnesium Sulfate 2 gm/ Sodium (Chloride) 104 mls @ 102 mls/hr IVPB ONCE ONE Stop: 06/16/17 08:16 Last Admin: 06/16/17 07:45 Dose: 102 mls/hr eMAR Start Stop Document 06/16/17 07:45 CLIFF (Rec: 06/16/17 07:45 CLIFF [id number]) Intravenous Solution Start Date 06/16/17 Start Time 07:45 End Date 06/16/17 End time 08:45 Total Infusion Time 60 Lorazepam (Ativan) 4 mg IVP Q3H PRN; Protocol PRN Reason: Symptoms of alcohol withdrawl Lorazepam (Ativan) 4 mg IVP Q4H SHAUNNA PRN Reason: Protocol Last Admin: 06/16/17 07:05 Dose: 4 mg IVP Administration Document 06/16/17 07:05 VANCES (Rec: 06/16/17 07:05 [id number] Charges for Administration # of IVP Administrations 1 Behavioural Document 06/16/17 07:05 [email or web address] (Rec: 06/16/17 07:05 [id number][place] Maintenance Maintenance Dose Yes Nonmedicinal Nonmedicinal Interventions Redirect Therapeutic Communication Activity Behavior Behavior for Medication: Anxiety Re-Assess: Reassess Psych Meds Document 06/16/17 07:35 CLIFF (Rec: 06/16/17 07:51 CLIFF [id number]) Reassess Psych Med Effective Lorazepam (Ativan) 3 mg IVP Q3H PRN; Protocol PRN Reason: Symptoms of alcohol withdrawl Lorazepam (Ativan) 2 mg IVP Q6H SHAUNNA PRN Reason: Protocol Last Admin: 06/17/17 02:32 Dose: Not Given Non-Admin Reason: Patient Asleep Potassium Chloride (K-Dur 20 Meq Er Tab) 20 meq PO ONCE ONE Stop: 06/17/17 07:44 Last Admin: 06/17/17 10:20 Dose: Potassium Chloride (K-Dur 20 Meq Er Tab) 40 meq PO ONCE ONE Stop: 06/17/17 07:57 Last Admin: 06/17/17 10:18 Dose: 40 meq Thiamine HCl (Vitamin B1 Tab) 100 mg PO STAT STA Stop: 06/15/17 21:55 Last Admin: 06/15/17 23:18 Dose: 100 mg - PA / OBSTETRICAL NURSE / Resident Statement MD/DO has reviewed & agrees with the documentation as recorded. <Mahnaz Peña - Last Filed: 06/17/17 21:14> Disposition/Present on Arrival - Present on Arrival Any Indicators Present on Arrival: No History of DVT/PE: No History of Uncontrolled Diabetes: No Urinary Catheter: No History Surgical Site Infection Following: None - Disposition Have Diagnosis and Disposition been Completed?: No Disposition Time: 19:10 <Prince Chakraborty - Last Filed: 06/15/17 19:07> - Disposition Patient Plan: Admission <Mahnaz Peña - Last Filed: 06/17/17 21:14> - Disposition Diagnosis: Alcohol abuse, Chest pain, Alcohol withdrawal Disposition: HOSPITALIZED Condition: FAIR
[2017-06-15] MEDS ORDERED: Multivitamin (MVI) 10 ML, Thiamine 100 MG, Folic Acid 1 MG in Sodium Chloride 0.9% 1,00... IV ONE (20:10)
--- NOTE | 2017-06-15 20:26 | CP.PCM.HP ---
History of Present Illness - History of Present Illness History of Present Illness: Barbara Sarabia, PGY1, H&P for Dr Steele: CC: cp, alcohol detoxification 46 yo M with PMH Anxiety, Asthma, CHF, Depression, HTN, Hypercholesterolemia, and Pancreatitis, reported history of CAD, presents for midsternal cp for past 3 days, intermittent, 10-12 times/day lasting 15-20 seconds, 6-7/10 intensity, radiated sometimes to left arm, "feels like someone is sitting on my chest." No particular exacerbating or remitting factors. Pt does not currently have any chest pain. He denies fever, chills, cough, SOB, diaphoresis, palpitations, syncope, dizziness, nausea, vomiting, abd pain, diarrhea, leg swelling, urinary symptoms. Pt reportedly [place] [facility] [place], but denies any stent placement. Pt is chronic alcoholic, had his last drink at 11 AM this morning. He states that he would like to get detox done. States that he is depressed for some time now, but denies HI/SI. In ED, pt vitals stable. ETOH 346. UDS neg. EKG showed NSR, no changes from previous EKG. trop negx1. pt then started withdrawing in ED, given 50 mg PO librium. 12 point ROS obtained and negative, except as per HPI. PMhx: CHF w/ EF 35% (08/2016), EtOH abuse/dependence, pancreatitis, HTN, HLD, depression, anxiety Past surgeries: Cardiac [place]3 [place] ago [place] [facility] [place] allergies: denies meds: See MAY FH: Father, [place] @ age 22. 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 [employer] Present on Admission - Present on Admission Any Indicators Present on Admission: No History of DVT/PE: No History of Uncontrolled Diabetes: No Urinary Catheter: No Decubitus Ulcer Present: No Review of Systems - Review of Systems All systems: reviewed and no additional remarkable complaints except Review of Systems: as per HPI Past Patient History - Infectious Disease Hx of Infectious Diseases: None - Tetanus Immunizations Tetanus Immunization: Unknown - Past Medical History & Family History Past Medical History?: Yes - Past Social History Smoking Status: Heavy Smoker > 10 Cigarettes Daily - CARDIAC Hx Cardia Arrhythmia: No Hx Congestive Heart Failure: Yes Hx Hypertension: Yes Hx Mitral Valve Prolapse: No Hx Pacemaker: No Hx Peripheral Edema: No - PULMONARY Hx Asthma: Yes (as a child) Hx Bronchitis: No Hx Chronic Obstructive Pulmonary Disease (COPD): No Hx Emphysema: No Hx Pneumonia: No Hx Sleep Apnea: No - NEUROLOGICAL Hx Alzheimer's Disease: No Hx Dementia: No Hx Migraine: No Hx Parkinson's Disease: No Hx Seizures: No Hx Transient Ischemic Attacks (TIA): No - HEENT Hx HEENT Problems: No - RENAL Hx Chronic Kidney Disease: No Hx Kidney Stones: No - ENDOCRINE/METABOLIC Hx Hyperthyroidism: No Hx Hypothyroidism: No - HEMATOLOGICAL/ONCOLOGICAL Hx Anemia: No Hx Sickle Cell Disease: No - INTEGUMENTARY Hx Dermatological Problems: No - MUSCULOSKELETAL/RHEUMATOLOGICAL Hx Arthritis: No Hx Fractures: No Hx Osteoporosis: No - GASTROINTESTINAL Hx Crohn's Disease: No Hx Diverticulitis: No Hx Gall Bladder Disease: No Hx Pancreatitis: Yes - GENITOURINARY/GYNECOLOGICAL Hx Sexually Transmitted Disorders: No - PSYCHIATRIC Hx Anxiety: Yes Hx Bipolar Disorder: No Hx Depression: Yes Hx Paranoia: No Hx Post Traumatic Stress Disorder: No Hx Schizophrenia: No Hx Substance Use: Yes - SURGICAL HISTORY Hx Appendectomy: No Hx Cholecystectomy: No Hx Coronary Stent: Yes - ANESTHESIA Hx Anesthesia: Yes Meds Allergies/Adverse Reactions: Allergies Allergy/AdvReac Type Severity Reaction Status Date / Time No Known Allergies Allergy Verified 06/15/17 18:03 Physical Exam - Constitutional Appears: Non-toxic, No Acute Distress - Head Exam Head Exam: ATRAUMATIC, NORMOCEPHALIC - Eye Exam Eye Exam: EOMI, PERRL. absent: Conjunctival injection, Nystagmus, Scleral icterus Pupil Exam: PERRL. absent: Fixed, Irregular, Unequal Additional comments: No tongue fasciculations or hand tremors noted - ENT Exam ENT Exam: Mucous Membranes Moist - Neck Exam Neck exam: Positive for: Full Rom - Respiratory Exam Respiratory Exam: Clear to Auscultation Bilateral, NORMAL BREATHING PATTERN. absent: Accessory Muscle Use, Rhonchi, Wheezes - Cardiovascular Exam Cardiovascular Exam: RRR, +S1, +S2. absent: Systolic Murmur - GI/Abdominal Exam GI & Abdominal Exam: Normal Bowel Sounds, Soft. absent: Firm, Guarding, Rebound , Rigid, Tenderness - Extremities Exam Extremities exam: Positive for: normal inspection. Negative for: calf tenderness, pedal edema - Back Exam Back exam: NORMAL INSPECTION - Neurological Exam Neurological exam: Alert, Oriented x3 - Psychiatric Exam Psychiatric exam: Depressed, Normal Mood - Skin Skin Exam: Dry, Normal Color, Warm Results - Vital Signs Recent Vital Signs: Last Vital Signs Temp 98.3 F 06/15/17 15:38 Pulse 59 L 06/15/17 18:38 Resp 18 06/15/17 18:38 BP 131/71 06/15/17 18:38 Pulse Ox 100 06/15/17 18:38 - Labs Result Diagrams: 06/15/17 16:35 06/15/17 16:35 Labs: Laboratory Results - last 24 hr 06/15/17 06/15/17 06/15/17 16:35 16:35 16:35 WBC 6.9 D RBC 4.14 Hgb 11.7 L Hct 34.8 L MCV 84.1 MCH 28.3 MCHC 33.6 RDW 15.2 H Plt Count 362 MPV 9.3 Gran % 53.1 Lymph % (Auto) 42.1 H Dodge % (Auto) 3.2 Eos % (Auto) 0.6 L Baso % (Auto) 1.0 Gran # 3.65 Lymph # (Auto) 2.9 Dodge # (Auto) 0.2 Eos # (Auto) 0.0 Baso # (Auto) 0.07 PT 10.7 INR 0.94 APTT 27.7 Sodium 146 Potassium 3.9 Chloride 105 Carbon Dioxide 25 Anion Gap 20 BUN 11 Creatinine 0.8 Est GFR ( Amer) > 60 Est GFR (Non-Af Amer) > 60 Random Glucose 78 Calcium 9.3 Magnesium 1.9 Total Bilirubin 0.8 AST 62 H D ALT 38 Alkaline Phosphatase 64 Lactate Dehydrogenase 549 Total Creatine Kinase 523 H CK-MB (CK-2) 3.4 CK-MB (CK-2) % Cancelled Troponin I < 0.01 NT-Pro-B Natriuret Pep 12.3 Total Protein 7.4 Albumin 4.3 Globulin 3.1 Albumin/Globulin Ratio 1.4 Lipase 204 Alcohol, Quantitative 06/15/17 16:35 WBC RBC Hgb Hct MCV MCH MCHC RDW Plt Count MPV Gran % Lymph % (Auto) Dodge % (Auto) Eos % (Auto) Baso % (Auto) Gran # Lymph # (Auto) Dodge # (Auto) Eos # (Auto) Baso # (Auto) PT INR APTT Sodium Potassium Chloride Carbon Dioxide Anion Gap BUN Creatinine Est GFR ( Amer) Est GFR (Non-Af Amer) Random Glucose Calcium Magnesium Total Bilirubin AST ALT Alkaline Phosphatase Lactate Dehydrogenase Total Creatine Kinase CK-MB (CK-2) CK-MB (CK-2) % Troponin I NT-Pro-B Natriuret Pep Total Protein Albumin Globulin Albumin/Globulin Ratio Lipase Alcohol, Quantitative 346 H* Assessment & Plan - Assessment and Plan (Free Text) Assessment: 46 M with PMHx Etoh abuse, CHF with EF 35% (08/2016), HTN, HLD, depression, anxiety, presents for cp, alcohol intoxication/withdrawal, alcohol detox: EtOH intoxication/withdrawal: -[facility] protocol -Fall/seizure/aspiration precautions -Ativan 4mg PO Q3H SHAUNNA, Ativan 4mg Q2H PRN -Thiamine, Folate, Multivitamin daily -Psych c/s. F/u recs. -Advised cessation Chest Pain, r/o ACS: -trops negative x 1, EKG shows NSR, unchanged from prior EKG. -CXR shows no active disease. -O[place] [facility] [place] 3 weeks ago -Serial trops, EKG in AM -Pt states that its resolved currently -ASA, home isosorbide mononitrate, coreg, statin Hx of Nicotine abuse: - advised cessation. nicotine patch. Hx of HTN: - c/w home Coreg - Continue to monitor Hx of CHF: - echo 08/2016 demonstrated EF of 35% - BNP wnl - C/w home carvedilol, isosorbide mononitrate, Aldactone Prophylaxis -Pepcid -SCD -Heart Healthy Diet Discussed with attending, Dr Steele. - Date & Time Date: 06/16/17 Time: 04:20
[2017-06-15 23:50] VITALS: RESP 20; BMI 25.8
[2017-06-16 06:26] LABS: BASO # 0.04 K/mm3 (0.0-2.0); BASO % 0.7 % (0.0-3.0); EOS # 0.1 (0.0-0.7); EOS % 1.1 % (1.5-5.0); GRAN # 3.55 (1.4-6.5); GRAN % 58.2 % (50.0-68.0); HEMOGLOBIN 10.8 g/dL (14.0-18.0); LYMPH # 2.1 (1.2-3.4); LYMPH % 33.9 % (22.0-35.0); MEAN CELL VOLUME 84.6 fl (80.0-105.0); MEAN CORPUSCULAR HEMOGLOBIN 27.8 pg (25.0-35.0); MEAN CORPUSCULAR HGB CONC 32.8 g/dl (31.0-37.0); MEAN PLATELET VOLUME 9.4 fl (7.0-11.0); MONO # 0.4 (0.1-0.6); MONO % 6.1 % (1.0-6.0); RBC 3.89 10^6/uL (3.5-6.1); RED CELL DISTRIBUTION WIDTH 15.5 % (11.5-14.5); WHITE BLOOD COUNT 6.1 10^3/ul (4.5-11.0)
[2017-06-16 06:55] LABS: ALB/GLOB RATIO 1.4 (1.1-1.8); ALBUMIN 3.9 g/dL (3.0-4.8); ALT/SGPT 40 U/L (7-56); AST/SGOT 65 U/L (17-59); BLOOD UREA NITROGEN 10 mg/dL (7-21); CALCIUM 9.1 mg/dL (8.4-10.5); GFR AFRICAN-AMERICAN > 60; GFR NON-AFRICAN AMERICAN > 60
[2017-06-16 07:01] LABS: TROPONIN I 0.02 ng/mL
[2017-06-16] MEDS ORDERED: Magnesium Sulfate 2 GM in Sodium Chloride 0.9% 100 ML IVPB ONE (07:15)
--- NOTE | 2017-06-16 07:28 | CARD ---
APPROVED REPORT EKG Measurement Heart [id number] <Conclusion> Sinus bradycardia Voltage criteria for left ventricular hypertrophy STTW changes c/w ischemia
[2017-06-16] MEDS: Multivitamin Therapeutic Tab PO SCH ×2 (07:51→09:30)
[2017-06-16] MEDS: Magnesium Oxide 400 mg Tab UD PO SCH (09:30)
--- NOTE | 2017-06-16 09:39 | CP.PCM.PCO ---
Addendum Addendum: 06/16/17 09:34 This pt does NOT have h/o depression and does NOT have h/o mental illness came to the ED for the chest pain pt has long h/o alcohol use disorder PES discussed case with this lyric writer 06/15/17 and pt was psychiatrically cleared because pt denied being depressed, denied suicidal or homicidal ideation, was not psychotic consult deferred because alcohol detox should be handled by Medical team should you have any questions please call back
--- NOTE | 2017-06-16 11:18 | CARD ---
APPROVED REPORT EKG Measurement Heart [id number] <Conclusion> Sinus tachycardia Possible Left atrial enlargement Nonspecific T wave abnormality Abnormal ECG
--- NOTE | 2017-06-17 01:23 | CON ---
DATE: 06/16/2017 CARDIOLOGY CONSULTATION HISTORY OF PRESENT ILLNESS: The patient is a 46-year-old male who presents with atypical chest pain. The patient is currently alcoholic and is experiencing some alcoholic withdrawal symptoms. He suffers from hypercholesterolemia and is treated with Imdur, which was placed in [facility] two weeks ago. He underwent a cardiac catheterization, which revealed disease in the distal vessels, which could not be manipulated. Instead he was treated medically. He denies symptoms now. SOCIAL HISTORY: The patient is active smoker and an active drinker. REVIEW OF SYSTEMS: A 14-point review of systems was reviewed in detail. No other symptoms were noted other than above. PHYSICAL EXAMINATION: VITAL SIGNS: Blood pressure is 142/97, heart rate in the 90s. NECK: Negative JVD. LUNGS: Without rales. HEART: Reveals S1, S2. EXTREMITIES: Without edema. EKG shows no acute changes. LABORATORY DATA: Troponins are negative x3. BUN and creatinine are unremarkable. Hemoglobin is 10.8. IMPRESSION: 1. Alcoholic withdrawal. 2. Atypical chest pain. 3. Documented coronary artery disease on catheterization at [facility] two weeks ago which found distal vessel disease, which is treated medically. 4. Hypercholesterolemia. 5. Nicotine addiction. PLAN: Given these findings, there is no further cardiac workup necessary at this time. We will continue his Imdur for chest pain. The patient needs to be watched for his alcoholic withdrawal. Adal Marquez MD
[2017-06-17 06:39] LABS: BASO # 0.05 K/mm3 (0.0-2.0); BASO % 0.7 % (0.0-3.0); EOS # 0.1 (0.0-0.7); EOS % 1.6 % (1.5-5.0); GRAN # 4.34 (1.4-6.5); GRAN % 64.3 % (50.0-68.0); HEMOGLOBIN 10.4 g/dL (14.0-18.0); LYMPH # 1.8 (1.2-3.4); LYMPH % 26.7 % (22.0-35.0); MEAN CELL VOLUME 84.6 fl (80.0-105.0); MEAN CORPUSCULAR HGB CONC 33.1 g/dl (31.0-37.0); MEAN PLATELET VOLUME 9.8 fl (7.0-11.0); MONO # 0.5 (0.1-0.6); MONO % 6.7 % (1.0-6.0); RBC 3.71 10^6/uL (3.5-6.1); RED CELL DISTRIBUTION WIDTH 15.4 % (11.5-14.5); WHITE BLOOD COUNT 6.8 10^3/ul (4.5-11.0)
[2017-06-17 07:06] LABS: ALB/GLOB RATIO 1.3 (1.1-1.8); ALBUMIN 3.7 g/dL (3.0-4.8); ALT/SGPT 31 U/L (7-56); AST/SGOT 55 U/L (17-59); BLOOD UREA NITROGEN 11 mg/dL (7-21); CALCIUM 9.5 mg/dL (8.4-10.5); GFR AFRICAN-AMERICAN > 60; GFR NON-AFRICAN AMERICAN > 60
[2017-06-17] MEDS ORDERED: Potassium Chloride 20 mEq ER Tab PO ONE ×2 (07:43→07:56)
[2017-06-17] MEDS: Multivitamin Therapeutic Tab PO SCH (09:50)
[2017-06-17] MEDS: Magnesium Oxide 400 mg Tab UD PO SCH (09:51)
--- NOTE | 2017-06-17 11:07 | PN ---
DATE: 06/17/2017 CARDIOLOGY FOLLOWUP SUBJECTIVE: The patient is chest pain free. He is complaining of lethargy. No tremors noted. No visual hallucinations. The patient is awake and alert. No tremors. PHYSICAL EXAMINATION: VITAL SIGNS: Blood pressure is 147/98, heart rates in the 80s. NECK: Negative JVD. LUNGS: Without rales. HEART: Reveals S1, S2. EXTREMITIES: Without edema. LABORATORY DATA: Troponins are negative. Hemoglobin is 10.4. IMPRESSION: 1. Resolution of chest pain. 2. Alcoholic withdrawal. 3. Alcoholism. 4. Anemia. 5. No arrhythmias noted. 6. Hypercholesterolemia. 7. Nicotine addiction. PLAN: Given these findings, the patient was fully worked up at [facility]. There is no evidence for acute coronary syndrome. The patient is recovering from his alcoholic withdrawal. We will discontinue telemetry today. I have discussed with the patient about his need to join Alcoholics Anonymous or another alcohol dependency program. No further cardiac workup is necessary. We will sign off the case today. Adal Marquez MD
--- NOTE | 2017-06-17 13:43 | CP.PCM.PN ---
<Prabhu Moser - Last Filed: 06/17/17 13:39> Subjective - Date & Time of Evaluation Date of Evaluation: 06/17/17 Time of Evaluation: 07:00 - Subjective Subjective: Patient seen and evaluated this AM. No acute events overnight. Patient continues to exhibit tremors and sweats during stay. Discussed with patient concerns about alcohol usage and cessation. Patient was in understanding. Objective - Vital Signs/Intake and Output Vital Signs (last 24 hours): Temp Pulse Resp BP Pulse Ox 98.3 F 78 20 134/91 H 97 06/17/17 12:00 06/17/17 12:00 06/17/17 12:00 06/17/17 12:00 06/17/17 06:00 Intake and Output: 06/17/17 06/17/17 06:59 18:59 Intake Total 780 Output Total 500 Balance 280 - Medications Medications: Current Medications Aspirin (Aspirin Chewable) 81 mg PO DAILY [facility] Last Admin: 06/17/17 09:50 Dose: 81 mg Atorvastatin Calcium (Lipitor) 40 mg PO DAILY [facility] Last Admin: 06/17/17 09:50 Dose: 40 mg Carvedilol (Coreg) 25 mg PO Q12 [facility] Last Admin: 06/17/17 09:51 Dose: 25 mg Clonidine HCl (Catapres) 0.1 mg PO Q6 PRN PRN Reason: SBP > 160 DBP > 90 Famotidine (Pepcid) 20 mg PO 1000,2200 [facility] Last Admin: 06/17/17 09:52 Dose: 20 mg Folic Acid (Folic Acid) 1 mg PO DAILY [facility] Last Admin: 06/17/17 09:52 Dose: 1 mg Isosorbide Mononitrate (Imdur Er) 30 mg PO DAILY [facility] Last Admin: 06/17/17 09:52 Dose: 30 mg Lorazepam (Ativan) 1 mg IVP Q6H JUAN LUIS PRN Reason: Protocol Last Admin: 06/17/17 09:50 Dose: 1 mg Lorazepam (Ativan) 0.5 mg IVP Q4H PRN; Protocol PRN Reason: Symptoms of alcohol withdrawl Magnesium Oxide (Mag-Ox) 400 mg PO DAILY [facility] Last Admin: 06/17/17 09:51 Dose: 400 mg Multivitamins (Thera Tab) 1 tab PO 0800 [facility] Last Admin: 06/17/17 09:50 Dose: 1 tab Nicotine (Nicoderm Cq) 1 patch TD DAILY [facility] Last Admin: 06/17/17 09:52 Dose: Not Given Spironolactone (Aldactone) 25 mg PO DAILY [facility] Last Admin: 06/17/17 09:52 Dose: 25 mg Thiamine HCl (Vitamin B1 Tab) 100 mg PO DAILY [facility] Last Admin: 06/17/17 09:52 Dose: 100 mg - Labs Labs: 06/17/17 05:30 06/17/17 05:30 PT 10.7 SECONDS (9.4-12.5) 06/15/17 16:35 INR 0.94 (0.93-1.08) 06/15/17 16:35 APTT 27.7 Seconds (25.1-36.5) 06/15/17 16:35 - Head Exam Head Exam: ATRAUMATIC, NORMAL INSPECTION, NORMOCEPHALIC - Eye Exam Eye Exam: EOMI, PERRL - ENT Exam ENT Exam: Mucous Membranes Moist - Respiratory Exam Respiratory Exam: Clear to Ausculation Bilateral. absent: Rales, Rhonchi, Wheezes - Cardiovascular Exam Cardiovascular Exam: REGULAR RHYTHM, +S1, +S2 - GI/Abdominal Exam GI & Abdominal Exam: Soft, Normal Bowel Sounds. absent: Tenderness - Extremities Exam Extremities Exam: absent: Calf Tenderness, Pedal Edema - Neurological Exam Neurological Exam: Alert, Awake, Oriented x3 - Psychiatric Exam Psychiatric exam: Anxious (mild) - Skin Skin Exam: Diaphoretic (mild), Intact, Warm Assessment and Plan - Assessment and Plan (Free Text) Assessment: 46 M with past medical history of ETOH abuse, CHF with EF 35% (08/2016), HTN, HLD , depression, anxiety who was admitted for chest pain and alcohol intoxication/ withdrawal who is admitted for ACS rule out and alcohol detoxication. Plan: ETOH intoxication/withdrawal Details: - On admission patient with elevated alochol level - Hx of prior alcohol withdrawal and detox - Ativan has been tapered over course of stay, tolerating Plan: - [facility] protocol - Fall/seizure/aspiration precautions - Taper Ativan to 1mg Q6 JUAN LUIS, Ativan 0.5mg Q4PRN - Thiamine, Folate, Multivitamin daily - Alcohol cessation education - Plan for PT to evaluate patient for gait stability Chest Pain, r/o ACS Details: - trops negative x 3, EKG shows NSR and t wave inversions, unchanged from prior EKG - CXR shows no active disease - Chest pain resolved Plan: - [place] [facility] [place] 3 weeks ago - ASA, home isosorbide mononitrate, coreg, statin Hx of Nicotine abuse - advised cessation. nicotine patch. Hx of HTN Details: - Chronic history of HTN - reports elevated BP during alcohol detox Plan: - c/w home Coreg - Added Clonidine 0.1mg Q6H PRN Hx of CHF Details: - echo 08/2016 demonstrated EF of 35% - BNP wnl Plan: - Carvedilol - Imdur - Aldactone GI/DVT Prophylaxis -Pepcid -SCD -Heart Healthy Diet Case and plan discussed with attending Hector Moser PGY-1 <Herb Katz - Last Filed: 06/17/17 14:32> Objective - Vital Signs/Intake and Output Vital Signs (last 24 hours): Temp Pulse Resp BP Pulse Ox 98.3 F 78 20 134/91 H 97 06/17/17 12:00 06/17/17 12:00 06/17/17 12:00 06/17/17 12:00 06/17/17 06:00 Intake and Output: 06/17/17 06/17/17 06:59 18:59 Intake Total 780 Output Total 500 Balance 280 - Medications Medications: Current Medications Aspirin (Aspirin Chewable) 81 mg PO DAILY [facility] Last Admin: 06/17/17 09:50 Dose: 81 mg Atorvastatin Calcium (Lipitor) 40 mg PO DAILY [facility] Last Admin: 06/17/17 09:50 Dose: 40 mg Carvedilol (Coreg) 25 mg PO Q12 [facility] Last Admin: 06/17/17 09:51 Dose: 25 mg Clonidine HCl (Catapres) 0.1 mg PO Q6 PRN PRN Reason: SBP > 160 DBP > 90 Famotidine (Pepcid) 20 mg PO 1000,2200 [facility] Last Admin: 06/17/17 09:52 Dose: 20 mg Folic Acid (Folic Acid) 1 mg PO DAILY [facility] Last Admin: 06/17/17 09:52 Dose: 1 mg Isosorbide Mononitrate (Imdur Er) 30 mg PO DAILY [facility] Last Admin: 06/17/17 09:52 Dose: 30 mg Lorazepam (Ativan) 1 mg IVP Q6H JUAN LUIS PRN Reason: Protocol Last Admin: 06/17/17 09:50 Dose: 1 mg Lorazepam (Ativan) 0.5 mg IVP Q4H PRN; Protocol PRN Reason: Symptoms of alcohol withdrawl Magnesium Oxide (Mag-Ox) 400 mg PO DAILY [facility] Last Admin: 06/17/17 09:51 Dose: 400 mg Multivitamins (Thera Tab) 1 tab PO 0800 [facility] Last Admin: 06/17/17 09:50 Dose: 1 tab Nicotine (Nicoderm Cq) 1 patch TD DAILY [facility] Last Admin: 06/17/17 09:52 Dose: Not Given Spironolactone (Aldactone) 25 mg PO DAILY [facility] Last Admin: 06/17/17 09:52 Dose: 25 mg Thiamine HCl (Vitamin B1 Tab) 100 mg PO DAILY [facility] Last Admin: 06/17/17 09:52 Dose: 100 mg - Labs Labs: 06/17/17 05:30 06/17/17 05:30 PT 10.7 SECONDS (9.4-12.5) 06/15/17 16:35 INR 0.94 (0.93-1.08) 06/15/17 16:35 APTT 27.7 Seconds (25.1-36.5) 06/15/17 16:35 Attending/Attestation - Attestation I have personally seen and examined this patient.: Yes I have fully participated in the care of the patient.: Yes I have reviewed all pertinent clinical information, including history, physical exam and plan: Yes Notes (Text): 06/17/17 14:28 46 year old male with past medical history of alcohol abuse, CHF, depression and anxiety who presented with chest pain and alcohol intoxication. He was admitted for alcohol withdrawal and to rule out ACS. Serial cardiac enzymes were negative and ACS was ruled out. Cardiology is following. Patient reports recently being cathed about [address] [facility] [place] was reviewed by Dr. Marquez. Continue with aspirin, statin, coreg and imdur. Continue with ativan juan luis/prn for withdrawal symptoms. Continue with multivitamin, folic acid and thiamine. He was counselled on alcohol abstinence. Recommend to follow up with AA / rehab upon discharge. Will replete and repeat lytes. Herb Katz MD Hospitalist.
[2017-06-18 07:26] LABS: BASO # 0.02 K/mm3 (0.0-2.0); BASO % 0.3 % (0.0-3.0); EOS # 0.2 (0.0-0.7); EOS % 2.2 % (1.5-5.0); GRAN # 4.88 (1.4-6.5); GRAN % 67.5 % (50.0-68.0); HEMOGLOBIN 11.1 g/dL (14.0-18.0); LYMPH # 1.8 (1.2-3.4); LYMPH % 24.2 % (22.0-35.0); MEAN CELL VOLUME 84.2 fl (80.0-105.0); MEAN CORPUSCULAR HEMOGLOBIN 27.5 pg (25.0-35.0); MEAN CORPUSCULAR HGB CONC 32.6 g/dl (31.0-37.0); MEAN PLATELET VOLUME 9.8 fl (7.0-11.0); MONO # 0.4 (0.1-0.6); MONO % 5.8 % (1.0-6.0); RBC 4.04 10^6/uL (3.5-6.1); WHITE BLOOD COUNT 7.2 10^3/ul (4.5-11.0)
[2017-06-18 07:56] LABS: ALB/GLOB RATIO 1.3 (1.1-1.8); ALBUMIN 4.4 g/dL (3.0-4.8); ALT/SGPT 49 U/L (7-56); AST/SGOT 67 U/L (17-59); BLOOD UREA NITROGEN 8 mg/dL (7-21); CALCIUM 10.2 mg/dL (8.4-10.5); GFR AFRICAN-AMERICAN > 60; GFR NON-AFRICAN AMERICAN > 60
[2017-06-18 08:10] VITALS: PULSE 72; TEMP 97.9; O2SAT 96
[2017-06-18] MEDS: Multivitamin Therapeutic Tab PO SCH (08:29)
[2017-06-18] MEDS: Magnesium Oxide 400 mg Tab UD PO SCH (10:36)
[2017-06-18 10:43] VITALS: BP 144/80
--- NOTE | 2017-06-18 14:53 | CP.PCM.DIS ---
<Prabhu Moser - Last Filed: 06/18/17 16:13> Provider - Provider Date of Admission: 06/15/17 20:13 Attending physician: Herb Katz MD Primary care physician: Padmini Yanez MD Consults: Cardio: Dr. Adal Marquez Time Spent in preparation of Discharge (in minutes): 35 Diagnosis - Discharge Diagnosis (1) Alcohol abuse Status: Chronic (2) Alcohol withdrawal Status: Resolved (3) Chest pain Status: Resolved (4) Alcohol abuse with intoxication Status: Chronic (5) Alcohol dependence with withdrawal Status: Acute (6) Alcoholism Status: Chronic Hospital Course - Lab Results Lab Results: Most Recent Lab Values WBC 7.2 10^3/ul (4.5-11.0) 06/18/17 06:45 RBC 4.04 10^6/uL (3.5-6.1) 06/18/17 06:45 Hgb 11.1 g/dL (14.0-18.0) L 06/18/17 06:45 Hct 34.0 % (42.0-52.0) L 06/18/17 06:45 MCV 84.2 fl (80.0-105.0) 06/18/17 06:45 MCH 27.5 pg (25.0-35.0) 06/18/17 06:45 MCHC 32.6 g/dl (31.0-37.0) 06/18/17 06:45 RDW 15.0 % (11.5-14.5) H 06/18/17 06:45 Plt Count 287 10^3/uL (120.0-450.0) 06/18/17 06:45 MPV 9.8 fl (7.0-11.0) 06/18/17 06:45 Gran % 67.5 % (50.0-68.0) 06/18/17 06:45 Lymph % (Auto) 24.2 % (22.0-35.0) 06/18/17 06:45 Dubois % (Auto) 5.8 % (1.0-6.0) 06/18/17 06:45 Eos % (Auto) 2.2 % (1.5-5.0) 06/18/17 06:45 Baso % (Auto) 0.3 % (0.0-3.0) 06/18/17 06:45 Gran # 4.88 (1.4-6.5) 06/18/17 06:45 Lymph # (Auto) 1.8 (1.2-3.4) 06/18/17 06:45 Dubois # (Auto) 0.4 (0.1-0.6) 06/18/17 06:45 Eos # (Auto) 0.2 (0.0-0.7) 06/18/17 06:45 Baso # (Auto) 0.02 K/mm3 (0.0-2.0) 06/18/17 06:45 PT 10.7 SECONDS (9.4-12.5) 06/15/17 16:35 INR 0.94 (0.93-1.08) 06/15/17 16:35 APTT 27.7 Seconds (25.1-36.5) 06/15/17 16:35 Sodium 137 mmol/L (132-148) 06/18/17 06:45 Potassium 3.8 mmol/L (3.6-5.0) 06/18/17 06:45 Chloride 103 mmol/L (98-107) 06/18/17 06:45 Carbon Dioxide 24 mmol/L (21-33) 06/18/17 06:45 Anion Gap 13 (10-20) 06/18/17 06:45 BUN 8 mg/dL (7-21) 06/18/17 06:45 Creatinine 0.9 mg/dl (0.8-1.5) 06/18/17 06:45 Est GFR ( Amer) > 60 06/18/17 06:45 Est GFR (Non-Af Amer) > 60 06/18/17 06:45 Random Glucose 101 mg/dL (70-110) 06/18/17 06:45 Hemoglobin A1c 4.7 % (4.2-6.5) 06/16/17 06:00 Calcium 10.2 mg/dL (8.4-10.5) 06/18/17 06:45 Phosphorus 3.5 mg/dL (2.5-4.5) 06/18/17 06:45 Magnesium 1.9 mg/dL (1.7-2.2) 06/18/17 06:45 Total Bilirubin 1.0 mg/dL (0.2-1.3) 06/18/17 06:45 AST 67 U/L (17-59) H D 06/18/17 06:45 ALT 49 U/L (7-56) 06/18/17 06:45 Alkaline Phosphatase 58 U/L (38-126) 06/18/17 06:45 Lactate Dehydrogenase 549 U/L (333-699) 06/15/17 16:35 Total Creatine Kinase 523 U/L (35-230) H 06/15/17 16:35 CK-MB (CK-2) 3.4 ng/mL (0.0-3.6) 06/15/17 16:35 CK-MB (CK-2) % Cancelled 06/15/17 16:35 Troponin I < 0.01 ng/mL D 06/16/17 10:00 NT-Pro-B Natriuret Pep 12.3 pg/mL (0-450) 06/15/17 16:35 Total Protein 7.7 g/dL (5.8-8.3) 06/18/17 06:45 Albumin 4.4 g/dL (3.0-4.8) 06/18/17 06:45 Globulin 3.3 gm/dL 06/18/17 06:45 Albumin/Globulin Ratio 1.3 (1.1-1.8) 06/18/17 06:45 Triglycerides 42 mg/dL (35-160) 06/16/17 06:00 Cholesterol 298 mg/dL (130-200) H 06/16/17 06:00 LDL Cholesterol Direct 117 mg/dL (0-129) 06/16/17 06:00 HDL Cholesterol 149 mg/dL (29-60) H 06/16/17 06:00 Lipase 204 U/L (23-300) 06/15/17 16:35 TSH 3rd Generation 0.53 mIU/mL (0.46-4.68) 06/16/17 06:00 Alcohol, Quantitative 346 mg/dL (0-10) H* 06/15/17 16:35 - Hospital Course Hospital Course: Patient is a 46 year old male with past medical history that includes chronic alcohol abuse, CHF with last known EF of 35% in 08/2016, Pacreatitis, HTN, HLD, and depression/anxiety who presented to [facility] [place] [facility] complaining of chest pain and alcohol intoxication with request for alcoholic detox. Patient was evaluated in ED and found to have non specific changes with some t wave inversions on EKG, initial troponin that was negative and continued chest discomfort. Patient was admitted for ACS rule out and alcohol detox. Serial troponins were negative and chest pain resolved. Patient had previous LHC done at [facility] [place] 3 weeks prior to presentation without intervention according to patient. Cardiology was consulted and evaluated the patient with recommendations for continued medical management and outpatient follow up. Psychiatry was consulted and evaluated the patient to be psychiatrically cleared due to denial of depression, SI, HI from patient. Patient was placed on Ativan schedule and prn orders with eventual tapering of medication over course of stay. Patient clinically showed improvement. Physical therapy evaluated the patient and reported stable on his feet with recommendations for home with outpatient services. tie worker evaluation was carried out for patient. Appropriate information regarding alcohol cessation programs were provided. Discharge planning in form of appropriate alcohol cessation, follow up outpatient with primary care team, medication reconciliation and tobacco cessation were given and patient was in understanding. Patient clinically stable at time of discharge. - Date & Time of H&P Date of H&P: 06/16/17 Time of H&P: 00:01 Discharge Exam - Head Exam Head Exam: ATRAUMATIC, NORMAL INSPECTION, NORMOCEPHALIC - Eye Exam Eye Exam: EOMI, PERRL - ENT Exam ENT Exam: Mucous Membranes Moist - Respiratory Exam Respiratory Exam: Clear to PA & Lateral. absent: Rales, Rhonchi, Respiratory Distress, Stridor - Cardiovascular Exam Cardiovascular Exam: REGULAR RHYTHM, +S1, +S2 - GI/Abdominal Exam GI & Abdominal Exam: Normal Bowel Sounds, Soft. absent: Tenderness - Extremities Exam Extremities exam: normal inspection, pedal pulses present - Back Exam Back exam: absent: paraspinal tenderness, vertebral tenderness - Neurological Exam Neurological exam: Alert, Normal Gait, Oriented x3 Additional comments: mild tremors present with extended hands, able to move all four extremities past midline, motor and sensory grossly intact - Psychiatric Exam Psychiatric exam: Normal Affect, Normal Mood - Skin Skin Exam: Dry, Warm Discharge Plan - Follow Up Plan Condition: FAIR Disposition: HOME/ ROUTINE Instructions: Heart Healthy Diet, Chest Pain (DC), Alcohol Abuse and Alcoholism (DC), Effects of Alcohol on Your Health, Hypertension (DC) Additional Instructions: - Follow up with primary care physician within 1 to 2 weeks upon discharge - Alcohol cessation counseling provided, use resources provided available for alcohol cessation - Avoid drinking alcohol - Take medications as prescribed - If you begin to have return or worsening of your presenting symptoms of chest pain or alcohol withdrawal go to nearest ED Referrals: Padmini Yanez MD [Primary Care Provider] - <Herb Katz - Last Filed: 06/18/17 17:02> Provider - Provider Date of Admission: 06/15/17 20:13 Attending physician: Herb Katz MD Primary care physician: Padmini Yanez MD Hospital Course - Lab Results Lab Results: Most Recent Lab Values WBC 7.2 10^3/ul (4.5-11.0) 06/18/17 06:45 RBC 4.04 10^6/uL (3.5-6.1) 06/18/17 06:45 Hgb 11.1 g/dL (14.0-18.0) L 06/18/17 06:45 Hct 34.0 % (42.0-52.0) L 06/18/17 06:45 MCV 84.2 fl (80.0-105.0) 06/18/17 06:45 MCH 27.5 pg (25.0-35.0) 06/18/17 06:45 MCHC 32.6 g/dl (31.0-37.0) 06/18/17 06:45 RDW 15.0 % (11.5-14.5) H 06/18/17 06:45 Plt Count 287 10^3/uL (120.0-450.0) 06/18/17 06:45 MPV 9.8 fl (7.0-11.0) 06/18/17 06:45 Gran % 67.5 % (50.0-68.0) 06/18/17 06:45 Lymph % (Auto) 24.2 % (22.0-35.0) 06/18/17 06:45 Dubois % (Auto) 5.8 % (1.0-6.0) 06/18/17 06:45 Eos % (Auto) 2.2 % (1.5-5.0) 06/18/17 06:45 Baso % (Auto) 0.3 % (0.0-3.0) 06/18/17 06:45 Gran # 4.88 (1.4-6.5) 06/18/17 06:45 Lymph # (Auto) 1.8 (1.2-3.4) 06/18/17 06:45 Dubois # (Auto) 0.4 (0.1-0.6) 06/18/17 06:45 Eos # (Auto) 0.2 (0.0-0.7) 06/18/17 06:45 Baso # (Auto) 0.02 K/mm3 (0.0-2.0) 06/18/17 06:45 PT 10.7 SECONDS (9.4-12.5) 06/15/17 16:35 INR 0.94 (0.93-1.08) 06/15/17 16:35 APTT 27.7 Seconds (25.1-36.5) 06/15/17 16:35 Sodium 137 mmol/L (132-148) 06/18/17 06:45 Potassium 3.8 mmol/L (3.6-5.0) 06/18/17 06:45 Chloride 103 mmol/L (98-107) 06/18/17 06:45 Carbon Dioxide 24 mmol/L (21-33) 06/18/17 06:45 Anion Gap 13 (10-20) 06/18/17 06:45 BUN 8 mg/dL (7-21) 06/18/17 06:45 Creatinine 0.9 mg/dl (0.8-1.5) 06/18/17 06:45 Est GFR ( Amer) > 60 06/18/17 06:45 Est GFR (Non-Af Amer) > 60 06/18/17 06:45 Random Glucose 101 mg/dL (70-110) 06/18/17 06:45 Hemoglobin A1c 4.7 % (4.2-6.5) 06/16/17 06:00 Calcium 10.2 mg/dL (8.4-10.5) 06/18/17 06:45 Phosphorus 3.5 mg/dL (2.5-4.5) 06/18/17 06:45 Magnesium 1.9 mg/dL (1.7-2.2) 06/18/17 06:45 Total Bilirubin 1.0 mg/dL (0.2-1.3) 06/18/17 06:45 AST 67 U/L (17-59) H D 06/18/17 06:45 ALT 49 U/L (7-56) 06/18/17 06:45 Alkaline Phosphatase 58 U/L (38-126) 06/18/17 06:45 Lactate Dehydrogenase 549 U/L (333-699) 06/15/17 16:35 Total Creatine Kinase 523 U/L (35-230) H 06/15/17 16:35 CK-MB (CK-2) 3.4 ng/mL (0.0-3.6) 06/15/17 16:35 CK-MB (CK-2) % Cancelled 06/15/17 16:35 Troponin I < 0.01 ng/mL D 06/16/17 10:00 NT-Pro-B Natriuret Pep 12.3 pg/mL (0-450) 06/15/17 16:35 Total Protein 7.7 g/dL (5.8-8.3) 06/18/17 06:45 Albumin 4.4 g/dL (3.0-4.8) 06/18/17 06:45 Globulin 3.3 gm/dL 06/18/17 06:45 Albumin/Globulin Ratio 1.3 (1.1-1.8) 06/18/17 06:45 Triglycerides 42 mg/dL (35-160) 06/16/17 06:00 Cholesterol 298 mg/dL (130-200) H 06/16/17 06:00 LDL Cholesterol Direct 117 mg/dL (0-129) 06/16/17 06:00 HDL Cholesterol 149 mg/dL (29-60) H 06/16/17 06:00 Lipase 204 U/L (23-300) 06/15/17 16:35 TSH 3rd Generation 0.53 mIU/mL (0.46-4.68) 06/16/17 06:00 Alcohol, Quantitative 346 mg/dL (0-10) H* 06/15/17 16:35 Attending/Attestation - Attestation I have personally seen and examined this patient.: Yes I have fully participated in the care of the patient.: Yes I have reviewed all pertinent clinical information, including history, physical exam and plan: Yes Notes (Text): 06/18/17 17:00 46 year old male with past medical history of alcohol abuse, CHF, depression and anxiety who presented with chest pain and alcohol intoxication. He was admitted for alcohol withdrawal. His symptoms improved with tapering ativan. He was on multivitamin, folic acid and thiamine. He was counselled on alcohol abstinence and recommended to follow up with AA / rehab upon discharge. Serial cardiac enzymes were negative and ACS was ruled out. He was seen by cardiology who recommended to continue with medical management. He was on aspirin, statin, coreg and imdur. Patient reports recently being cathed about 3 weeks ago at [facility] [place] which was reviewed by Dr. Marquez. Patient is discharged home to follow up with his pmd. Counselled on alcohol abstinence. Recommend to follow up with AA / rehab upon discharge. Herb Katz MD Hospitalist.
== END 2017-06-18 18:10 | disposition home or self-care (01) | DRG 897 ==
LOC: ED 15:26 → ERH 20:13 → 2RNO 22:52 → 5RSO 06-17 18:06
PROVIDERS: ADMIT Internal Medicine; ATTEND Internal Medicine
DX: F10.239 Alcohol dependence with withdrawal, unspecified (principal); F10.229 Alcohol dependence with intoxication, unspecified; I11.0 Hypertensive heart disease with heart failure; I50.9 Heart failure, unspecified; F32.9 Major depressive disorder, single episode, unspecified; F41.9 Anxiety disorder, unspecified; I25.10 Atherosclerotic heart disease of native coronary artery without angina pectoris; F17.210 Nicotine dependence, cigarettes, uncomplicated; E78.00 Pure hypercholesterolemia, unspecified; J45.909 Unspecified asthma, uncomplicated; Y90.8 Blood alcohol level of 240 mg/100 ml or more; D64.9 Anemia, unspecified; Z95.5 Presence of coronary angioplasty implant and graft

== ENCOUNTER 2017-07-10 17:04 | Emergency (ER) | payer MEDICAID ==
[2017-07-10 17:04] VITALS: BMI 27.4
[2017-07-10 17:27] VITALS: TEMP 98
--- NOTE | 2017-07-10 17:40 | ED PDOC ---
Arrival/HPI - General Historian: Patient - History of Present Illness Time/Duration: Other (see hpi) Context: Home <Carter Gallagher - Last Filed: 07/10/17 20:35> <Arujn Posadas - Last Filed: 07/11/17 00:52> <Sarath Felix - Last Filed: 07/11/17 06:25> - General Chief Complaint: Alcohol Ingestion Time Seen by Provider: 07/10/17 17:20 - History of Present Illness Narrative History of Present Illness (Text): 07/10/17 17:20 This 46 yo male presents to this ED by BLS for alcohol intoxication. 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 Patient denies sob, cp, abdominal pain, urinary symptoms, or illegal drug use. (Carter Gallagher) Past Medical History - Provider Review Nursing Documentation Reviewed: Yes - Past History Past History: Non-Contributing - Infectious Disease Hx of Infectious Diseases: None - Tetanus Immunization Tetanus Immunization: Unknown - Cardiac Hx Congestive Heart Failure: Yes Hx Hypertension: Yes - Pulmonary Hx Asthma: Yes (as a child) - Neurological Hx Alzheimer's Disease: No Hx Dementia: No Hx Migraine: No Hx Parkinson's Disease: No Hx Seizures: No Hx Transient Ischemic Attacks (TIA): No - HEENT Hx HEENT Disorder: No - Renal Hx Renal Disorder: No - Endocrine/Metabolic Hx Hyperthyroidism: No Hx Hypothyroidism: No - Hematological/Oncological Hx Blood Disorders: No - Integumentary Hx Dermatological Disorder: No - Musculoskeletal/Rheumatological Hx Musculoskeletal Disorders: No - Gastrointestinal Hx Pancreatitis: Yes - Genitourinary/Gynecological Hx Genitourinary Disorders: No - Psychiatric Hx Anxiety: Yes Hx Depression: Yes Hx Substance Use: No (pt. denies) - Surgical History Hx Coronary Stent: Yes - Anesthesia Hx Anesthesia: Yes Hx Anesthesia Reactions: No Hx Malignant Hyperthermia: No - Suicidal Assessment Feels Threatened In Home Enviroment: No <Carter Gallagher - Last Filed: 07/10/17 20:35> Family/Social History - Physician Review Nursing Documentation Reviewed: Yes Family/Social History: Other (noncontributory) Smoking Status: Heavy Smoker > 10 Cigarettes Daily Hx Alcohol Use: Yes Amount per day: 5 (pints vodka) Hx Substance Use: No (pt. denies) Substance used: marijuana <Gallagher,Nahim P - Last Filed: 07/10/17 20:35> Allergies/Home Meds <Carter Gallagher P - Last Filed: 07/10/17 20:35> <PosadasArjun Wes - Last Filed: 07/11/17 00:52> <Sarath Felix - Last Filed: 07/11/17 06:25> Allergies/Adverse Reactions: Allergies No Known Allergies Allergy (Verified 07/10/17 17:15) Home Medications: Home Meds Medication Instructions Recorded Confirmed Unobtainable 07/10/17 07/10/17 Review of Systems - Review of Systems Constitutional: Normal. absent: Fatigue, Weight Change, Fevers Eyes: Normal ENT: Normal Respiratory: Normal Cardiovascular: Normal Gastrointestinal: Normal Genitourinary Male: Normal Musculoskeletal: Normal Skin: Normal Neurological: Normal Endocrine: Normal Hemo/Lymphatic: Normal Psychiatric: Other (alcohol intoxication) <Carter Gallagher P - Last Filed: 07/10/17 20:35> Physical Exam Temperature: Afebrile Blood Pressure: Normal Pulse: Regular Respiratory Rate: Normal Appearance: Positive for: Well-Appearing, Non-Toxic, Comfortable Pain Distress: None Mental Status: Positive for: other - Systems Exam Head: Present: Atraumatic, Normocephalic Pupils: Present: PERRL Extroacular Muscles: Present: EOMI Conjunctiva: Present: Normal Mouth: Present: Moist Mucous Membranes Nose (External): Present: Atraumatic Nose (Internal): Present: Normal Inspection Neck: Present: Normal Range of Motion Respiratory/Chest: Present: Clear to Auscultation, Good Air Exchange. No: Respiratory Distress, Accessory Muscle Use Cardiovascular: Present: Regular Rate and Rhythm, Normal S1, S2. No: Murmurs Abdomen: No: Tenderness, Distention, Peritoneal Signs Back: Present: Normal Inspection Upper Extremity: Present: Normal Inspection. No: Cyanosis, Edema Lower Extremity: Present: Normal Inspection. No: Edema Neurological: Present: GCS=15, CN II-XII Intact, Speech Normal Skin: Present: Warm, Dry, Normal Color. No: Rashes Psychiatric: Present: Alert, Intoxicated <Carter Gallagher P - Last Filed: 07/10/17 20:35> Vital Signs Temp Pulse Resp BP Pulse Ox 07/11/17 05:00 66 16 118/68 97 07/11/17 03:00 65 16 120/67 97 07/11/17 01:00 66 16 117/70 96 07/10/17 23:00 70 16 121/71 97 07/10/17 21:04 75 18 115/66 97 07/10/17 17:19 98.0 F 84 18 165/96 H 95 Medical Decision Making <Carter Gallagher - Last Filed: 07/10/17 20:35> <Arjun Posadas - Last Filed: 07/11/17 00:52> <Sarath Felix - Last Filed: 07/11/17 06:25> ED Course and Treatment: 07/10/17 20:38 -Case sign off by NATALEE gallagher, +etoh on breath, admits drinking, pending sober 07/10/17 22:00 -pending sober, sleeping, easily arousable, FS 86 07/11/17 01:52 -sleeping, easily arousable, case endorsed to Dr. Felix for follow up the care and dispo. (Arjun Posadas) 07/11/17 06:24 Pt. is awake,alert,sober with steady gait. (Sarath Felix) - Lab Interpretations Lab Results: Lab Results 07/10/17 21:39: POC Glucose (mg/dL) 86 - PA / SENIOR SYSTEMS ENGINEER / Resident Statement NEGIN has reviewed & agrees with the documentation as recorded. <Arjun Posadas - Last Filed: 07/11/17 00:52> - PA / SENIOR SYSTEMS ENGINEER / Resident Statement NEGIN has reviewed & agrees with the documentation as recorded. NEGIN has examined the patient and agrees with the treatment plan. <Sarath Felix - Last Filed: 07/11/17 06:25> Disposition/Present on Arrival - Present on Arrival Any Indicators Present on Arrival: No History of DVT/PE: No History of Uncontrolled Diabetes: No Urinary Catheter: No History of Decub. Ulcer: No History Surgical Site Infection Following: None - Disposition Have Diagnosis and Disposition been Completed?: Yes <Carter Gallagher - Last Filed: 07/10/17 20:35> - Disposition Disposition Time: 22:00 <Arjun Posadas - Last Filed: 07/11/17 00:52> - Present on Arrival Any Indicators Present on Arrival: No - Disposition Have Diagnosis and Disposition been Completed?: Yes Disposition Time: 06:24 Patient Plan: Discharge <IsidroSarath law - Last Filed: 07/11/17 06:25> - Disposition Diagnosis: Alcohol intoxication Patient Problems: Current Active Problems Problem Status Onset Alcohol intoxication Acute Condition: GOOD Discharge Instructions (ExitCare): Alcohol Abuse and Alcoholism (DC) Referrals: Padmini Yanez MD [Primary Care Provider] - Follow up with primary Alcoholics Anonymous [Outside] - Follow up with primary Forms: [employer] (Croatian)
[2017-07-10 21:54] VITALS: O2SAT 97
[2017-07-11 05:36] VITALS: BP 118/68; PULSE 66; RESP 16
== END 2017-07-11 06:35 | disposition home or self-care (01) ==
LOC: ED 17:04
DX: F10.129 Alcohol abuse with intoxication, unspecified (principal)

== ENCOUNTER 2017-07-30 19:40 | Emergency (ER) | payer MEDICAID ==
[2017-07-30 19:43] VITALS: BMI 27.4
--- NOTE | 2017-07-30 19:55 | ED PDOC ---
Arrival/HPI - General Chief Complaint: Alcohol Ingestion Time Seen by Provider: 07/30/17 19:44 Historian: Patient, EMS - History of Present Illness Narrative History of Present Illness (Text): 07/30/17 19:52 47 y/o male, pmh including htn/hyperlipidemia/CHF, FS 92, takes baby dose aspirin and plavix daily, psychiatric history including alcohol dependent, + ETOH on breath, biba for public intoxication. Pt. stated that he was drinking today since 12pm which he had couple pints of vodka which he had been doing it for over several years, refused detox, stated that he was drinking again this afternoon, found on the ground sleeping between 2 cars which the patient he didn 't have fall or trauma, no extremity pain, no abdominal or chest pain, no palpitation, no night sweat, no rash, no other medical or psychological complaints. Past Medical History - Provider Review Nursing Documentation Reviewed: Yes - Past History Past History: Non-Contributing - Infectious Disease Hx of Infectious Diseases: None - Tetanus Immunization Tetanus Immunization: Unknown - Cardiac Hx Congestive Heart Failure: Yes Hx Hypertension: Yes - Pulmonary Hx Asthma: Yes (as a child) - Neurological Hx Alzheimer's Disease: No Hx Dementia: No Hx Migraine: No Hx Parkinson's Disease: No Hx Seizures: No Hx Transient Ischemic Attacks (TIA): No - HEENT Hx HEENT Disorder: No - Renal Hx Renal Disorder: No - Endocrine/Metabolic Hx Hyperthyroidism: No Hx Hypothyroidism: No - Hematological/Oncological Hx Blood Disorders: No - Integumentary Hx Dermatological Disorder: No - Musculoskeletal/Rheumatological Hx Musculoskeletal Disorders: No - Gastrointestinal Hx Pancreatitis: Yes - Genitourinary/Gynecological Hx Genitourinary Disorders: No - Psychiatric Hx Anxiety: Yes Hx Depression: Yes Hx Substance Use: No (pt. denies) - Surgical History Hx Coronary Stent: Yes - Anesthesia Hx Anesthesia: Yes Hx Anesthesia Reactions: No Hx Malignant Hyperthermia: No - Suicidal Assessment Feels Threatened In Home Enviroment: No Family/Social History - Physician Review Nursing Documentation Reviewed: Yes Family/Social History: Unknown Family HX Smoking Status: Heavy Smoker > 10 Cigarettes Daily Hx Alcohol Use: Yes Amount per day: 5 (pints vodka) Hx Substance Use: No (pt. denies) Substance used: marijuana Allergies/Home Meds Allergies/Adverse Reactions: Allergies No Known Allergies Allergy (Verified 07/10/17 17:15) Home Medications: Home Meds Medication Instructions Recorded Confirmed Unobtainable 07/10/17 07/30/17 Review of Systems - Review of Systems Systems not reviewed;Unavailable: Intoxicated Constitutional: absent: Fatigue, Fevers Eyes: absent: Vision Changes ENT: absent: Hearing Changes Respiratory: absent: SOB, Cough, Sputum Cardiovascular: absent: Chest Pain, Palpitations, Orthopnea Gastrointestinal: absent: Abdominal Pain, Diarrhea, Nausea, Vomiting Musculoskeletal: absent: Arthralgias, Back Pain, Myalgias Skin: absent: Rash, Pruritis Neurological: absent: Headache, Dizziness Psychiatric: absent: Anxiety, Depression, Suicidal Ideation Physical Exam Vital Signs Reviewed: Yes Vital Signs Temp Pulse Resp BP Pulse Ox 07/30/17 20:02 98.1 F 88 18 136/84 95 Temperature: Afebrile Blood Pressure: Normal Pulse: Regular Respiratory Rate: Normal Appearance: Positive for: Well-Appearing, Non-Toxic, Comfortable Pain Distress: None Mental Status: Positive for: Alert and Oriented X 3 - Systems Exam Head: Present: Atraumatic, Normocephalic, Other (facial: no tenderness or swelling, no priorbital tenderness). No: Tenderness, Contusion, Swelling, Ecchymosis, Abrasion, Laceration Pupils: Present: PERRL Extroacular Muscles: Present: EOMI, Other (no gaze, no periorbital swelling/ tenderness/ecchymosis, no signs of trauma, no hyphema or subconjunctival hemorrage. ). No: Gaze Palsy, Entrapment Conjunctiva: Present: Normal Ears: Present: NORMAL TM, Normal Canal. No: Erythema Mouth: Present: Moist Mucous Membranes Pharnyx: No: ERYTHEMA, EXUDATE, TONSILS ENLARGED, Uvular Deviation, Soft Palate/ Uvular Edema Nose (External): Present: Atraumatic. No: Abrasion, Contusion, Laceration Nose (Internal): Present: Normal Inspection, No Active Bleeding. No: Rhinorrhea , Septal Hematoma, Epistaxis Neck: Present: Normal Range of Motion, Trachea Midline. No: MIDLINE TENDERNESS , Paraspinal Tenderness, Lymphadenopathy Respiratory/Chest: Present: Clear to Auscultation, Good Air Exchange. No: Respiratory Distress, Accessory Muscle Use, Wheezes, Retracting, Rhonchi Cardiovascular: Present: Regular Rate and Rhythm, Normal S1, S2. No: Murmurs Abdomen: No: Tenderness, Distention, Peritoneal Signs, Rebound, Guarding Back: Present: Normal Inspection. No: CVA Tenderness, Midline Tenderness, Paraspinal Tenderness, Pain with Leg Raise, Decubitus Ulcer Upper Extremity: Present: Normal Inspection, Normal ROM, NORMAL PULSES, Neurovascularly Intact, Capillary Refill < 2s. No: Cyanosis, Edema, Tenderness , Swelling, Deformity Lower Extremity: Present: Normal Inspection, NORMAL PULSES, Normal ROM, Deformity, Neurovascularly Intact, Capillary Refill < 2 s. No: Edema, Tenderness, Swelling Neurological: Present: GCS=15, CN II-XII Intact, Speech Normal, Motor Func Grossly Intact, Memory Normal Skin: Present: Warm, Dry, Normal Color. No: Rashes Psychiatric: Present: Alert, Oriented x 3, Normal Insight, Normal Concentration , Intoxicated Medical Decision Making ED Course and Treatment: 07/30/17 19:56 -CT head ordered as the patient is on antiplatete and found on the ground, need to r/o bleed -FS 92 -Pt. refused lab works, will monitor and observe 07/30/17 21:06 -CT Head: No CT evidence of acute intracranial abnormality. Question acute fracture involving right inferior orbital wall and right lamina papyracea. If there is concern for acute fracture, dedicated facial bone imaging recommended. Correlate clinically for soft tissue injury. -Physical examination show there is no facial bony or periorbital tenderness/ swelling or ecchymosis, no entractment or gaze of the eye, no painful movement of the eye. Pt. stated that he has no facial or eye injury today. Clinical examination and history of present illness doesn't not compatible with the "question acute fracture involving right inferior orbital wall and right lamina papyracea." Discussed with DR. Simpson and he agreed with my impression. 07/31/17 01:14 -Pt. is awake now, stated that he needs librium as he feels anxious as he always taking it, request high dose, librium 50mg po ordered. Pt. has no tongue fasiculation and no fine hand tremors. 07/31/17 02:00am -Pt. still sleeping but easily arousable. Pt. stated that he feels fine, no pain or discomfort, no psychiatric complaints, request to be discharged home. He is walking with normal gait and posture, clinically sober. He stated that he has to leave now and doesn't want any prescriptions. Pt. has no homicidal or suicidal ideation, no auditory or visual hallucination. Pt has no signs of withdrawal, no tongue fasciculation, no hand tremors. -Case discussed with current ER attending Dr. Simpson, he agreed that the patient can leave now -Discharge home with education on avoid drinking alcohol in the public, follow up with your own pmd within 2 days, return to the ER for any new or worsening signs or symptoms. - RAD Interpretation Radiology Orders: 07/30/17 19:52 HEAD W/O CONTRAST [CT] Stat Brain: No hemorrhage. No significant white matter disease. No edema. Ventricles: No hydrocephalus. Bones: Skull is intact. Motion artifact limits evaluation of facial bones. Question acute fracture involving right inferior orbital wall and right lamina papyracea. If there is concern for acute fracture, dedicated facial bone imaging recommended. Sinuses: Mild paranasal sinus mucosal thickening, most significant in the right maxillary sinus. Mastoid air cells: No mastoid effusion. IMPRESSION: No CT evidence of acute intracranial abnormality. Question acute fracture involving right inferior orbital wall and right lamina papyracea. If there is concern for acute fracture, dedicated facial bone imaging recommended. Correlate clinically for soft tissue injury. 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 Disposition/Present on Arrival - Present on Arrival Any Indicators Present on Arrival: No History of DVT/PE: No History of Uncontrolled Diabetes: No Urinary Catheter: No History of Decub. Ulcer: No History Surgical Site Infection Following: None - Disposition Have Diagnosis and Disposition been Completed?: Yes Diagnosis: Alcohol dependence, Alcohol ingestion Disposition: HOME/ ROUTINE Disposition Time: 19:57 Patient Plan: Discharge Patient Problems: Current Active Problems Problem Status Onset Alcohol dependence Acute Alcohol ingestion Acute Condition: IMPROVED Discharge Instructions (ExitCare): Alcohol Abuse and Alcoholism (DC) Additional Instructions: -Discharge home with education on avoid drinking alcohol in the public, follow up with your own pmd within 2 days, return to the ER for any new or worsening signs or symptoms. Referrals: Padmini Yanez MD [Primary Care Provider] - Follow up with primary Forms: WORK NOTE
[2017-07-30 20:03] VITALS: RESP 18
--- NOTE | 2017-07-30 21:02 | CT ---
EXAM: CT Head Without Intravenous Contrast CLINICAL HISTORY: 47 years old, male; Injury or trauma; Fall; Initial encounter; Abrasion; Head, generalized; Additional info: ETOH, fall? TECHNIQUE: Axial computed tomography images of the head/brain without intravenous contrast. All CT scans at this facility use one or more dose reduction techniques, viz.: automated exposure control; ma/kV adjustment per patient size (including targeted exams where dose is matched to indication; i.e. head); or iterative reconstruction technique. Coronal and sagittal reformatted images were created and reviewed. COMPARISON: No relevant prior studies available. FINDINGS: Brain: No hemorrhage. No significant white matter disease. No edema. Ventricles: No hydrocephalus. Bones: Skull is intact. Motion artifact limits evaluation of facial bones. Question acute fracture involving right inferior orbital wall and right lamina papyracea. If there is concern for acute fracture, dedicated facial bone imaging recommended. Sinuses: Mild paranasal sinus mucosal thickening, most significant in the right maxillary sinus. Mastoid air cells: No mastoid effusion. IMPRESSION: No CT evidence of acute intracranial abnormality. Question acute fracture involving right inferior orbital wall and right lamina papyracea. If there is concern for acute fracture, dedicated facial bone imaging recommended. Correlate clinically for soft tissue injury.
[2017-07-31 01:26] VITALS: BP 131/80; PULSE 76; TEMP 98.5
[2017-07-31 03:18] VITALS: O2SAT 97
== END 2017-07-31 01:49 | disposition home or self-care (01) ==
LOC: ED 19:40
DX: F10.20 Alcohol dependence, uncomplicated (principal); E78.5 Hyperlipidemia, unspecified; I10 Essential (primary) hypertension; F17.210 Nicotine dependence, cigarettes, uncomplicated